=== PATIENT | male | born 1950 | race African-American/Black ===

== ENCOUNTER 2017-02-17 06:03 | Day surgery (SDC) | payer MEDICARE, MEDICAID ==
[2017-02-16 16:17] VITALS: BMI 25.0
[2017-02-17 06:43] LABS: #Basophils 0.1 thou/uL (0.0-0.2); #Eosinphils 0.1 thou/uL (0.0-0.7); #Lymphocytes 2.4 thou/uL (1.20-3.40); #Monocytes 0.9 thou/uL (0.11-0.59); #Neutrophils 5.8 thou/uL (1.40-6.50); %Basophils 0.9 % (0.0-1.0); %Eosinophils 1.6 % (0.0-10.0); %Lymphocytes 25.7 % (21.0-51.0); %Monocytes 9.4 % (0.0-10.0); Hematocrit 43.4 % (42.0-52.0); Mean Platelet Volume 7.6 fL (7.4-10.4); Red Blood Cell (RBC) Count 5.14 mill/uL (4.70-6.10); White Blood Cell (WBC) Count 9.2 thou/uL (4.8-10.8)
[2017-02-17 06:48] LABS: PTT 28.4 SEC (22.9-36.1); Prothrombin Time 13.6 SEC (12.0-14.7)
[2017-02-17] MEDS ORDERED: Diazepam 5 MG TAB ONE (06:54)
[2017-02-17 07:04] LABS: ALT (SGPT) 13 U/L (8-55); AST (SGOT) 18 U/L (5-34); Alkaline Phosphatase 90 U/L (40-150); Anion Gap 12 mmol/L (10-20); BUN (Urea Nitrogen) 15 mg/dL (8.4-25.7); Bilirubin, Total 0.5 mg/dL (0.2-1.2); Calc. Creatinine Clearance 77 mL/min (70-130); Carbon Dioxide 25 mmol/L (23-31); Chloride 104 mmol/L (98-107); Estimated GFR-MDRD 79; Globulin 3.5 g/dL (2.4-3.5); Protein, Total 7.7 g/dL (5.8-8.1)
[2017-02-17] MEDS ORDERED: Sodium Chloride 0.9% 1,000 ML IV SCH (07:15)
[2017-02-17] MEDS ORDERED: Diazepam 5 MG TAB PO SCH (07:15)
[2017-02-17] MEDS ORDERED: Nitroglycerin 100MG/250ML BOT 250 ML ONE (07:43)
--- NOTE | 2017-02-17 10:01 | EKG ---
Test Reason : PREOP Blood Pressure : / mmHG Vent. Rate : 062 BPM Atrial Rate : 062 BPM P-R Int : 220 ms QRS Dur : 096 ms QT Int : 376 ms P-R-T Axes : 064 -31 -28 degrees QTc Int : 381 ms Sinus rhythm with 1st degree A-V block Left axis deviation Voltage criteria for left ventricular hypertrophy Anteroseptal infarct (cited on or before 13-JUL-2011) T wave abnormality, consider lateral ischemia Abnormal ECG When compared with ECG of 09-NOV-2015 22:52, T wave inversion now evident in Anterior leads QT has shortened Confirmed by DESTINEE WILLSON ([id number]) on 02/17/2017 10:01:26 AM Referred By: MILA Confirmed By:DESTINEE WILLSON
[2017-02-17] MEDS ORDERED: Iopamidol 370 76% 100 ML VIAL ONE (17:16)
== END 2017-02-17 13:15 | disposition home or self-care (01) ==
LOC: CCL 06:03
PROVIDERS: ATTEND Internal Medicine Cardiovascular Disease
DX: R07.9 Chest pain, unspecified (principal); Q24.5 Malformation of coronary vessels; I73.9 Peripheral vascular disease, unspecified; I10 Essential (primary) hypertension; E78.5 Hyperlipidemia, unspecified; E11.9 Type 2 diabetes mellitus without complications; Z88.0 Allergy status to penicillin; Z79.84 Long term (current) use of oral hypoglycemic drugs; Z79.82 Long term (current) use of aspirin; Z79.899 Other long term (current) drug therapy
CPT/HCPCS: 76942; 80053; 80061; 85025; 85610; 85730; 93005; 93458; 93798; C1769; 36415; 93010; J1644

== ENCOUNTER 2017-05-04 10:34 | Outpatient (CLI) | payer MEDICARE, MEDICAID ==
[2017-05-04 12:02] LABS: Hematocrit 39.9 % (42.0-52.0); Mean Platelet Volume 7.7 fL (7.4-10.4); Red Blood Cell (RBC) Count 4.61 mill/uL (4.70-6.10); White Blood Cell (WBC) Count 5.6 thou/uL (4.8-10.8)
[2017-05-04 12:20] LABS: PTT 30.7 SEC (22.9-36.1); Prothrombin Time 13.9 SEC (12.0-14.7)
[2017-05-04 12:44] LABS: ALT (SGPT) 12 U/L (8-55); AST (SGOT) 14 U/L (5-34); Alkaline Phosphatase 81 U/L (40-150); Anion Gap 9 mmol/L (10-20); BUN (Urea Nitrogen) 15 mg/dL (8.4-25.7); Bilirubin, Total 0.7 mg/dL (0.2-1.2); Calc. Creatinine Clearance 0 mL/min (70-130); Calcium 9.7 mg/dL (7.8-10.44); Carbon Dioxide 30 mmol/L (23-31); Chloride 104 mmol/L (98-107); Estimated GFR-MDRD 86; Globulin 2.9 g/dL (2.4-3.5)
== END 2017-05-04 10:35 | disposition home or self-care (01) ==
LOC: LABBT 10:34
PROVIDERS: ATTEND Internal Medicine Cardiovascular Disease
DX: Z01.818 Encounter for other preprocedural examination (principal); I20.9 Angina pectoris, unspecified
CPT/HCPCS: 80053; 85027; 85610; 85730; 93005; 93010

== ENCOUNTER 2017-05-06 05:57 | Day surgery (SDC) | payer MEDICARE, MEDICAID ==
[2017-05-04 11:00] VITALS: BMI 25.6
[2017-05-06] MEDS ORDERED: Diazepam 5 MG TAB ONE (06:14)
[2017-05-06] MEDS ORDERED: Diazepam 5 MG TAB PO SCH (06:30)
[2017-05-06] MEDS ORDERED: HOLD HYPOGLYCEMIC MEDS AM OF CATH FS SCH (06:30)
[2017-05-06] MEDS ORDERED: Heparin 1000 UNIT/NS 500ML(OR) 1,000 ML ONE (06:36)
[2017-05-06] MEDS ORDERED: Fentanyl 100 MCG/2 ML VIAL ONE (07:39)
[2017-05-06] MEDS ORDERED: Midazolam HCl 2 mg/2 ml Vial ONE (07:39)
--- NOTE | 2017-05-06 07:50 | PRG ---
DATE OF SERVICE: 05/06/2017 SUBJECTIVE: I spoke with Mr. Hoyos prior to the procedure this morning. This was prior to any sed ation. I discussed drug-coated versus nondrug coated stent placement. After discussing the risks and benefits of drug-coated versus nondrug coated stent placement, he woul d like to proceed with a drug-coated stent. He states he can take Plavix and aspirin for up to a yea r if needed. He states he is compliant with no bleeding issues or surgeries planned. His friend was present during the discussion. After reviewing the films, there appears to be an 80%-90% lesion followed by a 50% lesion. We will t ry and only address the 80%-90% lesion given the proximity to a myocardial bridge. Again, initially had recommended bypass surgery, but the patient after thinking about his options, has deferred, and maicol amanda would like to proceed with intervention to the LAD.
[2017-05-06] MEDS ORDERED: Clopidogrel Bisulfate 300 MG TAB ONE (08:19)
[2017-05-06] MEDS ORDERED: Heparin 10,000 UNITS/1 ML VIAL ONE (08:19)
== END 2017-05-06 14:16 | disposition home or self-care (01) ==
LOC: CCL 05:57
PROVIDERS: ATTEND Internal Medicine Cardiovascular Disease
DX: I25.119 Atherosclerotic heart disease of native coronary artery with unspecified angina pectoris (principal); I10 Essential (primary) hypertension; E11.9 Type 2 diabetes mellitus without complications; E78.5 Hyperlipidemia, unspecified; Z88.0 Allergy status to penicillin; Z79.84 Long term (current) use of oral hypoglycemic drugs; Z79.899 Other long term (current) drug therapy
CPT/HCPCS: 76942; 80061; 85347; 92978; 93005; 93454; 93798; C1725; C1753 ×2; C1760; C1769 ×2; C1874; C9600; 92928; 93010; 99152; 99153; J1644; J2250; J3010

== ENCOUNTER 2017-08-24 19:04 | Emergency (ER) | payer MEDICARE, MEDICAID ==
[2017-08-24] MEDS ORDERED: Ketorolac Tromethamine 30 MG/ML VIAL ONE (20:21)
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
== END 2017-08-24 21:10 | disposition home or self-care (01) ==
LOC: ERS 19:04
DX: S46.912A Strain of unspecified muscle, fascia and tendon at shoulder and upper arm level, left arm, initial encounter (principal); E11.9 Type 2 diabetes mellitus without complications; E78.5 Hyperlipidemia, unspecified; I10 Essential (primary) hypertension; V49.40XA Driver injured in collision with unspecified motor vehicles in traffic accident, initial encounter
CPT/HCPCS: 96372; J1885

== ENCOUNTER 2017-10-13 18:48 | Observation (INO) | payer MEDICARE, MEDICAID ==
[~2017-10-13 18:48] MED LIST: ISOVUE-370 76%-LOCM 1 ML ONE
[2017-10-13 22:40] LABS: #Basophils 0.1 thou/uL (0.0-0.2); #Eosinphils 0.1 thou/uL (0.0-0.7); #Monocytes 0.7 thou/uL (0.11-0.59); #Neutrophils 4.7 thou/uL (1.40-6.50); %Basophils 0.7 % (0.0-1.0); %Eosinophils 1.5 % (0.0-10.0); %Lymphocytes 26.6 % (21.0-51.0); %Monocytes 9.5 % (0.0-10.0); %Neutrophils 61.6 % (42.0-75.0); Hemoglobin 14.3 g/dL (14.0-18.0); Mean Corpuscular HGB CONC 34.4 g/dL (32.0-36.0); Mean Corpuscular Hemoglobin 29.4 pg (27.0-31.0); Mean Corpuscular Volume 85.3 fl (80.0-94.0); Mean Platelet Volume 7.2 fL (7.4-10.4); Platelet Count 199 thou/uL (130-400); RBC Distribution Width 12.7 % (11.5-14.5); Red Blood Cell (RBC) Count 4.86 mill/uL (4.70-6.10); White Blood Cell (WBC) Count 7.6 thou/uL (4.8-10.8)
[2017-10-13] MEDS ORDERED: Morphine 10 MG/ML VIAL ONE (22:48)
[2017-10-13 22:52] LABS: Bilirubin Negative (Negative); Blood, Urine Negative (Negative); Clarity CLOUDY (Clear); Glucose, Urine (Dipstick) Negative (Negative); Leukocyte Negative (Negative); Nitrite Negative (Negative); Protein, Urine (Dipstick) Negative (Neg-Trace); Specific Gravity, Urine 1.006 (1.002-1.036); Urobilinogen 0.2 mg/dL (0.2-1.0); pH, Urine 7.5 (5.0-9.0)
[2017-10-13 23:08] LABS: ALT (SGPT) 11 U/L (8-55); AST (SGOT) 22 U/L (5-34); Albumin 4.4 g/dL (3.4-4.8); Alkaline Phosphatase 81 U/L (40-150); Anion Gap 13 mmol/L (10-20); BUN (Urea Nitrogen) 9 mg/dL (8.4-25.7); Calc. Creatinine Clearance 0 mL/min (70-130); Calcium 9.8 mg/dL (7.8-10.44); Carbon Dioxide 24 mmol/L (23-31); Chloride 105 mmol/L (98-107); Estimated GFR-MDRD Greater than 90; Globulin 3.3 g/dL (2.4-3.5); Glucose 126 mg/dL (80-115); Potassium 3.5 mmol/L (3.5-5.1); Protein, Total 7.7 g/dL (5.8-8.1); Sodium 138 mmol/L (136-145)
[2017-10-13 23:09] LABS: CRP (Inflammatory) Less than 0.50 mg/dL (= or < 0.5); Lipase 19 U/L (8-78)
--- NOTE | 2017-10-13 23:39 | CT ---
CT ABDOMEN AND PELVIS WITH IV CONTRAST: 10/13/2017 PROVIDED CLINICAL HISTORY: Abdominal pain. COMPARISON: None. FINDINGS: The visualized lung bases are free of significant opacity. The solid abdominal organs demonstrate an unremarkable CT appearance. Hqv-gniri-yq-characterize hypo density involving the left kidney. There is a right inguinal hernia, containing small bowel. There is a resultant small bowel obstructi on. There is no evidence for pneumatosis or portal venous gas. There is no evidence for pneumoperit oneum. There is fluid density within the hernia sac. There is no inflammatory fat stranding or free fluid apparent. A small fat-containing umbilical jack ia is also seen. The osseous structures demonstrate no concerning osteoblastic or osteolytic lesions. IMPRESSION: Small bowel containing right inguinal hernia with resultant small bowel obstruction. POS: [facility]
[2017-10-14 01:49] VITALS: BMI 23.4
[2017-10-14] MEDS: Sodium Chloride 0.9% 1,000 ML IV SCH ×2 (02:10→15:16)
[2017-10-14] MEDS ORDERED: Morphine 4 MG/ML VIAL SLOW IVP PRN (02:38)
[2017-10-14] MEDS ORDERED: Ondansetron ODT 4 MG TAB SL PRN (02:39)
[2017-10-14] MEDS ORDERED: Ondansetron HCl/PF 4 MG/2 ML Vial IVP PRN (02:39)
[2017-10-14] MEDS: Morphine 4 MG/ML VIAL SLOW IVP PRN ×2 (02:45→08:00)
[2017-10-14 08:03] VITALS: TEMP 97.4
[2017-10-14] MEDS ORDERED: Prevnar 13-Val Conj/PF 0.5 ML SYRINGE IM ONE (09:00)
[2017-10-14] MEDS ORDERED: Ketorolac Tromethamine 30 MG/ML VIAL IVP SCH (09:30)
[2017-10-14] MEDS ORDERED: Acetaminophen 1,000 MG in Premix Bag 1 BAG IVPB SCH (09:30)
--- NOTE | 2017-10-14 09:48 | HP ---
HISTORY OF PRESENT ILLNESS: Pauly Hoyos is a 66-year-old black male, admitted last year, had chest pain, underwent evaluation, had a coronary stent placed by Dr. Patton. The patient is a symptomatic from a coronary standpoint. He had normal echocardiogram at that time. He has not follo wed up with Dr. Patton as an outpatient. Patient presents with a history of right inguinal hernia for several months that he is able to reduce. He presented to emergency room and it was not reducib le. He underwent a CAT scan demonstrating right inguinal hernia with small-bowel obstruction. He wa s admitted to the hospital. The patient has not had any nausea or vomiting. His white count was nor mal. This morning, I saw him and reduced his hernia without difficulty at all. Patient's abdomen is not d istended. On exam, standing, he has a right inguinal hernia, but no left inguinal hernia. There is no discomfort in his left groin. CAT scan of abdomen and pelvis, otherwise, was unremarkable. Plan is for a robotic right inguinal hernia repair with mesh, possible hernia repair on the left with mesh if discovered and appreciated laparoscopically, robotically. Risk of infection, bleeding, reoperati on, recurrence of hernia, chronic pain discussed. ALLERGIES: PENICILLIN. TOBACCO: None. ALCOHOL: None. MEDICATIONS: Aspirin 81 mg a day, metformin 1000 b.i.d., furosemide 20 mg daily, glipizide 5 mg b.i. d., lisinopril 40 mg daily, isosorbide 30 mg daily, Plavix 75 mg daily, carvedilol 25 mg b.i.d., ator vastatin 40 mg at bedtime. PAST SURGICAL HISTORY: Coronary stent last year, Dr. Patton. PAST MEDICAL HISTORY: Hypertension, type 2 diabetes mellitus, stable coronary artery disease, schizo phrenia. PHYSICAL EXAMINATION: VITAL SIGNS: 6 feet tall, 173 pounds, 23 BMI, 97.4, 54, 16. HEAD, EARS, EYES, NOSE, AND THROAT: Unremarkable. LUNGS: Clear to auscultation. CARDIAC: Regular rate and rhythm without murmur, rub, or gallop. ABDOMEN: Soft, nontender, nondistended. Right inguinal hernia, easily reducible. On standing, he h as a right inguinal hernia. Testicles are normal bilaterally. Left groin without appreciable hernia . EXTREMITIES: Unremarkable. LABORATORY DATA: White count 7.6, hemoglobin 14. Comprehensive metabolic profile normal. ASSESSMENT AND PLAN: 1. Right inguinal hernia, easily reducible. We will plan robotic hernia repair, possible left ingui nal hernia repair is appreciated robotically. Risk of infection, bleeding, reoperation explained, an d he consents. 2. Schizophrenia. 3. Coronary artery disease. 4. Hypertension. 5. Diabetes mellitus.
[2017-10-14] MEDS ORDERED: Fentanyl 100 MCG/2 ML VIAL ONE ×2 (10:12→13:04)
[2017-10-14] MEDS ORDERED: Bupivacaine/Epinephrine 0.25% 30 ML VIAL ONE (10:16)
[2017-10-14] MEDS ORDERED: Succinylcholine Chloride 20 MG/ML 10 ml SYRINGE FS ONE (12:43)
[2017-10-14] MEDS ORDERED: PHENYLEPHRINE-NS 100 MCG/ML 10 ML SYRINGE ONE (12:43)
[2017-10-14] MEDS ORDERED: Lidocaine 1% PF 5 ML VIAL ONE (12:43)
[2017-10-14] MEDS ORDERED: Dexamethasone 20 MG/5 ML VIAL ONE (12:43)
[2017-10-14] MEDS ORDERED: Ondansetron HCl/PF 4 MG/2 ML Vial ONE (12:43)
[2017-10-14] MEDS ORDERED: Glycopyrrolate 0.2 MG/ML 5 ML SYRINGE ONE (12:43)
[2017-10-14] MEDS ORDERED: PROPOFOL 200 MG/20 ML VIAL ONE (12:43)
[2017-10-14] MEDS ORDERED: traMADol HCl 50 MG TAB PO PRN ×2 (13:48)
[2017-10-14] MEDS ORDERED: Ibuprofen 600 MG TAB PO PRN (13:48)
[2017-10-14] MEDS ORDERED: Acetaminophen 500 MG TAB PO PRN (13:48)
[2017-10-14] MEDS ORDERED: HumaLOG 300 UNITS/3 ML VIAL SC PRN (13:51)
[2017-10-14] MEDS ORDERED: Dextrose 5% in Water 1,000 ML IV PRN (13:51)
[2017-10-14] MEDS ORDERED: Dextrose 50% Abboject 50 ML SYRINGE SLOW IVP PRN (13:51)
[2017-10-14] MEDS ORDERED: HYDROmorphone 2 MG/ML VIAL SLOW IVP PRN (14:08)
[2017-10-14] MEDS ORDERED: Promethazine HCl 25 MG/ML VIAL SLOW IVP PRN (14:08)
[2017-10-14] MEDS ORDERED: Morphine Sulfate 2 MG/ML SYRINGE SLOW IVP PRN (14:08)
[2017-10-14] MEDS ORDERED: Meperidine HCl/PF 25 MG/ML VIAL SLOW IVP PRN (14:08)
[2017-10-14] MEDS ORDERED: Lisinopril 20 MG TAB PO SCH (16:30)
[2017-10-14 16:36] VITALS: BP 171/60
[2017-10-14] MEDS ORDERED: Clopidogrel Bisulfate 75 MG TAB PO SCH (17:00)
--- NOTE | 2017-10-14 19:48 | OP ---
DATE OF PROCEDURE: 10/14/2017 PREOPERATIVE DIAGNOSES: Incarcerated right inguinal hernia with bowel obstruction, reduced preoperat ively earlier this morning. POSTOPERATIVE DIAGNOSES: Incarcerated right inguinal hernia with bowel obstruction reduced preoperat ively earlier this morning. PROCEDURE PERFORMED: Robotic endoscopic mesh repair, indirect right inguinal hernia. SURGEON: Dr. Thaddeus Heredia SAS ARCHITECT: Dr. Hudson. ANESTHESIA: General anesthesia. Local 0.5% Marcaine with epinephrine, 30 mL total volume used. PROCEDURE IN DETAIL: The patient was taken to the operating room where under general anesthesia, Fol ey catheter was placed at the beginning of the procedure, removed at the end. Abdomen clipped of corey r, prepared with ChloraPrep, draped in routine fashion. Local anesthetic infiltrated into skin and s ubcutaneous tissue about the port sites. Supraumbilical incision made. Pneumoperitoneum to 15 mmHg obtained with the Veress needle, replacing it with an 11-port and video laparoscope inserted. Left l ateral and right lateral incisions made and 8-mm ports placed on the horizontal plane. These were pl aced under laparoscopic visualization. The robot was docked, properly positioned with the patient pr operly padded in supine position and robotic inguinal hernia repair undertaken. The left groin revea led a very small indentation, but his preoperative clinical exam did not reveal a hernia on standing exam and he was asymptomatic. This was felt not to be worth repairing. There was a large indirect r ight inguinal hernia. Peritoneum was scored horizontally at the level of the anterior superior iliac spine. Peritoneum was scored from laterally to medially to the midline. Peritoneal flaps dissected free medially, the Kevin's ligament identified in the pubis. It was then dissected medially toward s the cord structures laterally, dissection carried out. This was taken down and then the large [place] rect hernia sac dissected free. Hernia sac was very large, dissection difficult. It was dissected f ree, reduced. The cord structures kept free of harm. The inferior epigastric arteries kept free of harm. At this point, Bard 3DMax mesh for the right side was placed in the medial and near the pubis, secured to the pubis with 2-0 Vicryl suture. Mesh was properly positioned well covering the right g roin and cord structures and secured anterior and right lateral just to the inferior epigastric arter ies. Once it was properly positioned, the peritoneum was closed with continuous suture of Stratafix. Good hernia repairs appreciated. Patient tolerated the procedure well. Chandler removed. All instru ments removed and all skin incisions in the supraumbilical fascia approximated with 0 Vicryl GraNee n eedle and all pneumoperitoneum reduced. All skin incisions closed with interrupted subdermal 4-0 Mon ocryl and DermaGlue applied.
[2017-10-14] MEDS ORDERED: Atorvastatin Calcium 40 MG TAB PO SCH (21:00)
[2017-10-14] MEDS ORDERED: Carvedilol 25 MG TAB PO SCH (21:00)
[2017-10-14] MEDS ORDERED: metFORMIN 500 MG TAB PO SCH (21:00)
--- NOTE | 2017-10-14 22:01 | DIS ---
DATE OF ADMISSION: 10/13/2017 DATE OF DISCHARGE: 10/14/2017 DISCHARGE DIAGNOSES: 1. Incarcerated inguinal hernia with bowel obstruction. 2. Schizophrenia. 3. Diabetes. 4. Hypertension. PROCEDURES IN THIS HOSPITALIZATION: Robotic mesh repair, right inguinal hernia. HISTORY: A 66-year-old black male with a history of a hernia in his right groin for several months. He is asymptomatic on the left side and clinical exam did not reveal a hernia prior to the operation . Patient was seen in the emergency room. CAT scan confirmed a right inguinal hernia that was incar cerated. He was put in the hospital overnight and I saw him early in the morning easily reduced his hernia, resolving any discomfort. He was then taken to the operating room late morning or afternoon when he underwent the above procedure and postoperatively did well and discharged home to resume his home medications, avoid lifting over 25 pounds for 2 weeks. Diet and activity otherwise as tolerated . Resume his diabetic diet, resume his home medications including aspirin 81 mg a day, metformin 100 0 b.i.d., furosemide 20 daily, glipizide 5 mg b.i.d., lisinopril 40 mg a day, isosorbide 30 mg a day, Plavix 75 mg a day, Coreg 25 mg b.i.d., atorvastatin 40 mg at bedtime, tramadol 50 mg p.o. q.6 hours p.r.n., ibuprofen 600 mg p.r.n. pain, acetaminophen p.r.n. Patient is to follow up in my office in 2 weeks, avoid lifting over 25 pounds for 2 weeks. He does have coronary artery disease, had a coron jacob stent placed last year by Dr. Patton. He was asymptomatic from a cardiac standpoint. He was encouraged to follow up Dr. Patton.
[2017-10-15] MEDS ORDERED: Non-Formulary Item 1 EACH (Lisinopril [Lisinopril] 40 MG) PO SCH (09:00)
[2017-10-15] MEDS ORDERED: Furosemide 20 MG TAB PO SCH (09:00)
[2017-10-15] MEDS ORDERED: Polyethylene Glycol 3350 17 GM Packet PO SCH (09:00)
[2017-10-15] MEDS ORDERED: Lisinopril 20 MG TAB PO SCH (09:00)
[2017-10-15] MEDS ORDERED: Clopidogrel Bisulfate 75 MG TAB PO SCH (09:00)
== END 2017-10-14 18:13 | disposition home or self-care (01) ==
LOC: ERS 18:48 → 2SW 10-14 00:58
PROVIDERS: ADMIT Specialist; ATTEND Specialist
PROC: 0YU54JZ Supplement Right Inguinal Region with Synthetic Substitute, Percutaneous Endoscopic Approach (ICD-10-PCS; principal; 2017-10-13)
DX: K40.90 Unilateral inguinal hernia, without obstruction or gangrene, not specified as recurrent (principal); I25.10 Atherosclerotic heart disease of native coronary artery without angina pectoris; I10 Essential (primary) hypertension; E11.9 Type 2 diabetes mellitus without complications; F20.9 Schizophrenia, unspecified; Z79.02 Long term (current) use of antithrombotics/antiplatelets; Z79.82 Long term (current) use of aspirin; Z79.84 Long term (current) use of oral hypoglycemic drugs; Z79.899 Other long term (current) drug therapy; Z88.0 Allergy status to penicillin; Z95.5 Presence of coronary angioplasty implant and graft
CPT/HCPCS: 49650; 74177; 80053; 81003; 82962; 83605; 83690; 85025; 86140; 93005; 96361; 96374; 96375; 96376; 99285; C1781; G0378; 36415; 36416; J0131; J1100; J1885; J1956; J2001; J2270; J2405; J2704; J3010; Q0162

== ENCOUNTER 2017-12-28 14:57 | Outpatient (CLI) | payer MEDICARE, MEDICAID ==
[~2017-12-28 14:57] MED LIST changes: -ISOVUE-370 76%-LOCM 1 ML ONE; +Iopamidol 370 76% 100 ML VIAL ONE
== END 2017-12-28 14:58 | disposition home or self-care (01) ==
LOC: BICCT 14:57
PROVIDERS: ATTEND Internal Medicine Gastroenterology
DX: R63.4 Abnormal weight loss (principal)
CPT/HCPCS: 74177; 82565

== ENCOUNTER 2018-07-23 12:44 | Outpatient (CLI) | payer MEDICARE, MEDICAID ==
--- NOTE | 2018-07-23 15:02 | RAD ---
PORTABLE CHEST: HISTORY: MRI screening. FINDINGS: The lungs are clear. The heart and mediastinum are unremarkable. No pacemaker or other electronic d evice is identified. IMPRESSION: Negative chest. POS: [facility]
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
== END 2018-07-23 12:45 | disposition home or self-care (01) ==
LOC: BICMRI 12:44
PROVIDERS: ATTEND Orthopaedic Surgery
DX: M47.22 Other spondylosis with radiculopathy, cervical region (principal); M48.02 Spinal stenosis, cervical region; M48.03 Spinal stenosis, cervicothoracic region
CPT/HCPCS: 71045; 72141

== ENCOUNTER 2020-02-09 12:28 | Inpatient (IN) | payer MEDICARE, MEDICAID, OTHER ==
[~2020-02-09 12:28] MED LIST changes: -Iopamidol 370 76% 100 ML VIAL ONE; +Iopamidol-370 76% 500 ML 1 ML ONE
--- NOTE | 2020-02-09 12:40 | CT ---
EXAM: CT brain without contrast HISTORY: Left-sided weakness and ectasia. Level 1 stroke. COMPARISON: 11/10/2015 TECHNIQUE: Multiple contiguous axial images were obtained and a CT of the brain without contrast. FINDINGS: There are scattered hypodensities in the subcortical and periventricular white matter consi stent with small vessel ischemic disease. There is no evidence of hydrocephalus, intracranial hemorrhage, or extra-axial fluid collection. The calvarium and overlying soft tissues are unremarkable. The visualized paranasal sinuses and masto id air cells are well aerated. IMPRESSION: No evidence of acute intracranial abnormality Dr. monson notified of findings at 12:37 PM on 02/09/2020.
[2020-02-09] MEDS ORDERED: niCARdipine 20MG In NaCl 20 MG/200 ML BAG ONE (13:19)
[2020-02-09 13:23] LABS: #Eosinphils 0.1 thou/uL (0.0-0.7); #Lymphocytes 1.2 thou/uL (1.20-3.40); #Monocytes 0.5 thou/uL (0.11-0.59); #Neutrophils 5.1 thou/uL (1.40-6.50); %Basophils 0.7 % (0.0-1.0); %Eosinophils 0.7 % (0.0-10.0); %Lymphocytes 17.4 % (21.0-51.0); %Monocytes 7.7 % (0.0-10.0); %Neutrophils 73.5 % (42.0-75.0); Hemoglobin 14.2 g/dL (14.0-18.0); Mean Corpuscular HGB CONC 32.5 g/dL (32.0-36.0); Mean Corpuscular Hemoglobin 27.9 pg (27.0-31.0); Mean Corpuscular Volume 85.8 fL (78.0-98.0); Mean Platelet Volume 8.8 fL (7.4-10.4); Platelet Count 176 thou/uL (130-400); Red Blood Cell (RBC) Count 5.11 mill/uL (4.70-6.10); White Blood Cell (WBC) Count 6.9 thou/uL (4.8-10.8)
[2020-02-09 13:28] LABS: PTT 30.6 sec (22.9-36.1); Prothrombin Time 13.2 sec (12.0-14.7)
[2020-02-09 13:37] LABS: ALT (SGPT) 11 U/L (8-55); AST (SGOT) 16 U/L (5-34); Albumin 4.1 g/dL (3.4-4.8); Alkaline Phosphatase 92 U/L (40-110); Anion Gap 10 mmol/L (10-20); BUN (Urea Nitrogen) 12 mg/dL (8.4-25.7); Bilirubin, Total 0.5 mg/dL (0.2-1.2); CK (CPK) 147 U/L (30-200); Calc. Creatinine Clearance 0 mL/min (70-130); Calcium 9.3 mg/dL (7.8-10.44); Carbon Dioxide 30 mmol/L (23-31); Chloride 101 mmol/L (98-107); Estimated GFR-MDRD 68; Globulin 3.6 g/dL (2.4-3.5); Glucose 145 mg/dL (80-115); Potassium 4.3 mmol/L (3.5-5.1); Protein, Total 7.7 g/dL (5.8-8.1); Sodium 137 mmol/L (136-145)
--- NOTE | 2020-02-09 13:41 | CT ---
EXAM: CT ANGIOGRAM OF THE HEAD AND NECK INDICATION: Stroke COMPARISON: None TECHNIQUE: CT angiogram of the head and neck are performed in the axial plane. Three-dimensional refo rmatted images are submitted for interpretation. FINDINGS: CTA OF THE HEAD WITH AND WITHOUT CONTRAST: POSTCONTRAST CT OF BRAIN: Pathologic enhancement: No pathologic enhancement the brain. Loss of cortical angulo-white matter diffe rentiation involving the right frontal temporal region compatible with a infarct involving a branch of the right MCA distribution. Postcontrast soft tissue neck CT: Aerodigestive tract:Aerodigestive tract is patent. No mucosal abnormality. Sinuses: Adequate aeration. Orbits: Bilateral ocular lenses are appropriately located. Both globes are intact. Retrobulbar fat is preserved. Symmetric attenuation the optic nerves and ocular rectus muscles. Salivary glands:Symmetric attenuation Thyroid gland: Unremarkable Lymph nodes: No evidence of lymphadenopathy by size criteria. Paraspinal muscles: Symmetric attenuation of the sternocleidomastoid muscles. Appropriate attenuation of the paraspinal muscles. Cervical spine:Vertebral body height is maintained. No fracture. Moderate central canal stenosis at C 4-C5, C5-C6 and C6-C7 due to degenerative change. Associated neural foraminal narrowing. Technique limits evaluation. Upper mediastinum and lung apices: No acute mild CTA OF THE NECK WITH CONTRAST: Aorta: Atherosclerosis. No aneurysm, dissection or periaortic fat stranding Right carotid artery: Appropriate enhancement and luminal diameter the origin the right carotid arter y, innominate artery, carotid bifurcation and internal carotid artery. No significant stenosis based upon NASCET criteria Left carotid: Appropriate enhancement and luminal diameter involving the origin left carotid artery, common carotid, carotid bifurcation and internal carotid artery. No significant stenosis based upon NASCET criteria. Subclavian arteries:Symmetric and patent Vertebral arteries:Patent throughout their course in the neck. Dominant left vertebral artery. CTA OF THE BRAIN: Intracranial internal carotid arteries:Appropriate enhancement and luminal diameter Anterior circulation: Symmetric enhancement and luminal diameter the A1 segments, proximal A2 segment s, M1 segments and proximal MCA branches. There does appear to be recanalize along the right frontal lobe (axial images 229 to 233 and axial images 244 to 250.. Stenosis is presumed to involve a second or possibly third-degree branch vessel along the right MCA distribution.. Left M1 segment and left MCA branches are patent. Intracranial vertebral arteries: Patent. Both vertebral arteries supply normal caliber basilar artery . Posterior circulation: Appropriate enhancement and luminal diameter of the basilar artery and bilater al P1 segments. IMPRESSION: Acute infarct involving the right MCA distribution. Exact origin of occlusion is difficult to appreci ate but is presumed to be a second or third degree branch vessels supplying the anterior right MCA distribution. Results of study conveyed to Dr. Brar 02/09/2020 at 1:39 PM Code CR Transcribed Date/Time: 02/09/2020 1:55 PM
[2020-02-09] MEDS ORDERED: Aspirin Chewable 81 MG TAB ONE (14:03)
[2020-02-09] MEDS ORDERED: Aspirin 300 MG Suppository ONE (15:25)
--- NOTE | 2020-02-09 15:42 | PDOC.HHP ---
Hospitalist HPI - History of Present Illness stroke like symptoms History of Present Illness: This is 69 year old male with past medical history of hypertension, diabetes, possible bipolar versus schizophrenia, enlarged heart who was presented after he was found down on the floor. The patient is unable to give a history. THe patient's daughter states that her father called her around 8:00 pm last night and the patient was not speaking to her. She thought he was playing a prank so she did not think much of it. THis morning her aunt found him on the ground difficult to arouse. THe patient states he had no headache, weakness, numbness in his arms or legs, difficulty speaking, chest pain, palpitations, dysphagia, lightheadedness or dizziness prior to passing out. The ambulance was called. They noticed dysarthria and left sided weakness. There was a question of him being normal possibly around 11:00 am today but unclear The patient reportedly has had a seizure before two years ago and was supposed to be taking a medicine for it but she is not sure. ED Course: WHen the patient arrived to the ER, his blood pressure was 210/120. CT head showed no acute disease. CTA showed acute infarct in the right MCA distribution. The patient was started on a nicardipine drip. Blood pressure came down to 160 with this. Hospitalist ROS - Review of Systems Constitutional: denies: fever, chills Eyes: denies: pain, vision change ENT: denies: ear pain, ear discharge Respiratory: denies: cough, dry, shortness of breath Cardiovascular: denies: chest pain, palpitations, orthopnea, light headedness Gastrointestinal: denies: nausea, vomiting, abdominal pain Genitourinary: denies: dysuria, frequency Musculoskeletal: denies: neck pain, shoulder pain Skin: denies: rash, lesions Neurological: denies: weakness, numbness Hospitalist History - Past Medical History Other Medical History: Hypertension Diabetes Bipolar/Schizophrenia versus Schizoaffective Enlarged heart - Past Surgical History Past Surgical History: reports: no pertinent history - Family History Other Family History: Unknown family history of stroke - Social History Smoking Status: Never smoker Alcohol: reports: None Drugs: reports: none Occupation: Retired - Exam General Appearance: NAD, awake alert Eye: PERRL, anicteric sclera ENT: normocephalic atraumatic, no oropharyngeal lesions Neck: no JVD Heart: RRR, no murmur, no gallops, no rubs Respiratory: CTAB, no wheezes, no rales, no ronchi Gastrointestinal: soft, non-tender, non-distended, normal bowel sounds Extremities: no cyanosis, no clubbing, no edema Skin: normal turgor, no lesions, no rashes Neurological: cranial nerve grossly intact, normal sensation to touch, no focal deficits, no new deficit, facial droop (left facial droop with weakness) Neurological - other findings: LLE 4/5 strength compared to right. Brisk reflexes. Neg Babinski Musculoskeletal: normal tone, normal strength, no muscle wasting Musculoskeletal - other findings: full range of motion of extremities Psychiatric: A&O x 3, flat affect Hospitalist Results - Labs Result Diagrams: 02/09/20 13:00 02/09/20 13:00 Lab results: WBC 6.9 thou/uL (4.8-10.8) 02/09/20 13:00 Hgb 14.2 g/dL (14.0-18.0) 02/09/20 13:00 Hct 43.9 % (42.0-52.0) 02/09/20 13:00 MCV 85.8 fL (78.0-98.0) 02/09/20 13:00 Plt Count 176 thou/uL (130-400) 02/09/20 13:00 Neutrophils % 73.5 % (42.0-75.0) 02/09/20 13:00 Sodium 137 mmol/L (136-145) 02/09/20 13:00 Potassium 4.3 mmol/L (3.5-5.1) 02/09/20 13:00 Chloride 101 mmol/L (98-107) 02/09/20 13:00 Carbon Dioxide 30 mmol/L (23-31) 02/09/20 13:00 BUN 12 mg/dL (8.4-25.7) 02/09/20 13:00 Creatinine 1.27 mg/dL (0.7-1.3) 02/09/20 13:00 Glucose 145 mg/dL (80-115) H 02/09/20 13:00 Calcium 9.3 mg/dL (7.8-10.44) 02/09/20 13:00 Total Bilirubin 0.5 mg/dL (0.2-1.2) 02/09/20 13:00 AST 16 U/L (5-34) 02/09/20 13:00 ALT 11 U/L (8-55) 02/09/20 13:00 Alkaline Phosphatase 92 U/L (40-110) 02/09/20 13:00 Creatine Kinase 147 U/L (30-200) 02/09/20 13:00 CK-MB (CK-2) 2.0 ng/mL (0-6.6) 02/09/20 13:00 Troponin I 0.031 ng/mL (< 0.028) H 02/09/20 13:00 Serum Total Protein 7.7 g/dL (5.8-8.1) 02/09/20 13:00 Albumin 4.1 g/dL (3.4-4.8) 02/09/20 13:00 - EKG Interpretation EKG: normal sinus rhythm Hospitalist H&P A/P - Plan Plan: CTA head: stenosis along second or third degree branch vessel along right MCA CTA neck: no significant stenosis This is a 69 year old male with history of hypertension, diabetes who presented with left sided weakness, found to have right MCA stroke Right MCA stroke - noted on CT head. CTA neck showed no significant stenosis. CTA head shows stenosis along second-third degree branch vessel along right MCA - patient does not appear to be candidate for TPA due to unclear onset of symptoms - will give rectal aspirin -continue statin - check MRI brain - neurology consult - ECHO, lipid panel in am - stroke team consult - BP goal around 180, will attempt to wean off nicardipin drip Type II Diabetes - insulin sliding scale - fingersticks achs Elevated troponin - at 0.031, continue to trend - check ECHO Hypertension - hold home meds, permissive hypertension for now CAD - had stent placement in LAD in 2017 - continue aspirin/plavix Schizophrenia vs Bipolar - not on any psychiatric meds. 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
--- NOTE | 2020-02-09 16:07 | PDOC.FMACP ---
Advance Care Planning - Note Participants: patient Summary: Advanced Care Planning was discussed. The diagnosis, prognosis and goals of care were discussed. Appropriate forms and documentation to accomplish the goals of care were discussed. All questions were answered. The Palliative Care Team will be engaged to assist with completion of any outstanding forms that are needed. The patient would like to be a full code. He states he would like his daughter Gokul to be his decision maker if he cannot make decisions for himself Time Spent (mins): 30
--- NOTE | 2020-02-09 16:44 | MRI ---
MRI OF THE BRAIN WITHOUT CONTRAST: 02/09/20 INDICATIONS: Left sided weakness. Aphasia. Comparison made to MRI of brain from 09/01/12. Motion artifact degrades the study. Ventricles have normal size and position. Moderately severe chronic ischemic white matter changes are noted which have progressed since prior exam. Review of diffusion weighted images show restricted diffusion in the right frontal lobe cortex. This involves portions of the right precentral gyrus peripherally that extends inferiorly into the parasyl vian region and involves the opercular cortex and the portions of the anterior insular cortex. Findin gs are consistent with an acute right middle cerebral artery distribution infarct. No hemorrhage identified. The intracranial internal carotid arteries show flow voids. Portions of the right middle cerebral art kajal show a flow void proximally but this artery cannot be adequately assessed due to motion artifact. Basilar artery appears patent. IMPRESSION: 1. Acute infarct involving the right middle cerebral artery distribution. 2. Moderate chronic ischemic white matter change. POS: AGW
[2020-02-09 20:23] LABS: Troponin I 0.018 ng/mL (< 0.028)
[2020-02-09] MEDS: Atorvastatin Calcium 40 MG TAB PO SCH (22:46)
[2020-02-09 22:54] VITALS: BMI 25.2
[2020-02-10] MEDS ORDERED: Dextrose 5% in Water 1,000 ML IV PRN (08:21)
[2020-02-10] MEDS ORDERED: HumaLOG 300 UNITS/3 ML VIAL SC PRN (08:21)
[2020-02-10] MEDS ORDERED: Dextrose 50% Abboject 50 ML SYRINGE SLOW IVP PRN (08:21)
[2020-02-10] MEDS ORDERED: hydrALAZINE 20 MG/ML VIAL SLOW IVP PRN (09:43)
[2020-02-10 12:47] LABS: SARS-CoV-2 MS2 Positive; SARS-CoV-2 N Gene Negative; SARS-CoV-2 S Gene Negative; SARS-CoV-2 by NAA Not Detected (NotDetected); SARS-CoV-2 orf1ab Negative
--- NOTE | 2020-02-10 13:07 | EEG ---
DATE OF SERVICE: 02/10/2020 ATTENDING PHYSICIAN: Shanique Fragoso MD This EEG was performed using 24-channel [employer] Video Digital EEG machine with 24-disk electrodes. This was an extended 2 hours 5 minutes of inpatient video EEG recording. Digital analysis of the EEG was done for spike and seizure detection, which revealed no abnormalities. BACKGROUND: The posterior background rhythm is 9 to 10 Hz. The background rhythm attenuates with eye opening and enhances with eye closure. HYPERVENTILATION: Not performed. PHOTIC STIMULATION: Bioccipital symmetric driving responses observed. SLEEP: Drowsiness and sleep are observed. EEG DIAGNOSIS: Occasional irregular theta activity seen during the recording. CLINICAL INTERPRETATION: This EEG is consistent with mild generalized nonspecific cerebral dysfunction. Job ID: [id number]
--- NOTE | 2020-02-10 13:57 | CON ---
NEUROLOGY CONSULTATION DATE OF CONSULTATION: 02/10/2020 REASON FOR CONSULTATION: Stroke. HISTORY OF PRESENT ILLNESS: Mr. Pauyl Hoyos is a 69-year-old male with medical history significant for hypertension, bipolar disorder, and schizophrenia, presented to the hospital after he was found down on the floor. The patient is unable to provide history, so history is obtained from review of the medical records. Per medical records, the patient's daughter saw her father around 8 p.m. last night, and at that time, the patient was not speaking to her. She did not pay much attention at that time and thought it was secondary to his mood issue; however, her aunt called her in the morning and told her that he was on the floor and was difficult to arouse, therefore, ambulance was called and it was decided to bring to the hospital for further evaluation. They also noticed on initial presentation, he had significant dysarthria and left-sided weakness. The patient does have history of seizure disorder two years ago and supposed to be on a medicine, but apparently from review of the records, he is not on any medication. In the emergency room, his blood pressure was 210/120. CT scan did not show any acute intracranial pathology. CTA showed acute infarct in the right middle cerebral artery distribution, and he was started on nicardipine drip and admitted to the stroke floor for further evaluation. - Review of Systems Constitutional: denies: fever, chills Eyes: denies: pain, vision change ENT: denies: ear pain, ear discharge Respiratory: denies: cough, dry, shortness of breath Cardiovascular: denies: chest pain, palpitations, orthopnea, light headedness Gastrointestinal: denies: nausea, vomiting, abdominal pain Genitourinary: denies: dysuria, frequency Musculoskeletal: denies: neck pain, shoulder pain PAST MEDICAL HISTORY: Hypertension, diabetes, bipolar, schizoaffective disorder, and enlarged heart. PAST SURGICAL HISTORY: No significant past surgical history. FAMILY HISTORY: No family history of stroke. SOCIAL HISTORY: The patient lives alone. There is no documented history of smoking, alcohol, or illegal drug use. ALLERGIES: NKDA - Exam General Appearance: NAD, awake alert Eye: PERRL, anicteric sclera ENT: normocephalic atraumatic, no oropharyngeal lesions Neck: no JVD Heart: RRR, no murmur, no gallops, no rubs Respiratory: CTAB, no wheezes, no rales, no ronchi Gastrointestinal: soft, non-tender, non-distended, normal bowel sounds Extremities: no cyanosis, no clubbing, no edema Skin: normal turgor, no lesions, no rashes Neurological:: Mental status, the patient is alert, awake, and is oriented to person, place, and time. Significant dysarthria and receptive aphasia. Cranial nerves 2 through 12 intact except 7, left facial droop and 10, dysarthria. Motor, muscle tone is decreased on the left upper and lower extremity. Left upper extremity is 3/5. Left lower extremity 4/5. Right upper extremity 5/5. Right lower extremity 5/5. Sensation decreased on the left. Cerebellar, slow on the left secondary to weakness. Gait deferred due to the patient's safety reasons. DATA REVIEWED: I reviewed the labs, which were significant for hyperglycemia of 145. Rest of the labs were essentially unremarkable. EKG showed normal sinus rhythm. CTA of the head showed stenosis of branch vessel along the right MCA. CTA neck showed no significant stenosis. Lab results: WBC 6.9 thou/uL (4.8-10.8) 02/09/20 13:00 Hgb 14.2 g/dL (14.0-18.0) 02/09/20 13:00 Hct 43.9 % (42.0-52.0) 02/09/20 13:00 MCV 85.8 fL (78.0-98.0) 02/09/20 13:00 Plt Count 176 thou/uL (130-400) 02/09/20 13:00 Neutrophils % 73.5 % (42.0-75.0) 02/09/20 13:00 Sodium 137 mmol/L (136-145) 02/09/20 13:00 Potassium 4.3 mmol/L (3.5-5.1) 02/09/20 13:00 Chloride 101 mmol/L (98-107) 02/09/20 13:00 Carbon Dioxide 30 mmol/L (23-31) 02/09/20 13:00 BUN 12 mg/dL (8.4-25.7) 02/09/20 13:00 Creatinine 1.27 mg/dL (0.7-1.3) 02/09/20 13:00 Glucose 145 mg/dL (80-115) H 02/09/20 13:00 Calcium 9.3 mg/dL (7.8-10.44) 02/09/20 13:00 Total Bilirubin 0.5 mg/dL (0.2-1.2) 02/09/20 13:00 AST 16 U/L (5-34) 02/09/20 13:00 ALT 11 U/L (8-55) 02/09/20 13:00 Alkaline Phosphatase 92 U/L (40-110) 02/09/20 13:00 Creatine Kinase 147 U/L (30-200) 02/09/20 13:00 CK-MB (CK-2) 2.0 ng/mL (0-6.6) 02/09/20 13:00 Troponin I 0.031 ng/mL (< 0.028) H 02/09/20 13:00 Serum Total Protein 7.7 g/dL (5.8-8.1) 02/09/20 13:00 Albumin 4.1 g/dL (3.4-4.8) 02/09/20 13:00 ASSESSMENT AND PLAN: Mr. Pauly Hoyos is a 69-year-old male with history significant for hypertension, diabetes, presented with acute onset left-sided weakness and speech deficit. MRI of the brain reviewed and was consistent with acute infarction in the right middle cerebral artery territory. CTA neck showed no significant stenosis. CTA of the head showed significant stenosis along branch vessel along the right MCA. Consider CV Surgery input. Continue aspirin and high-intensity statin for secondary stroke prevention. Awaiting 2D echo. Neuro checks every 4 hours. Monitor blood pressure and blood glucose. Continue home medications, telemetry, PT/OT/speech. Continue medical management per primary team. The patient has a remote history of seizure, so EEG completed and was negative for seizure activity. Observe seizure precautions. Consider starting on Keppra 500 mg b.i.d. since the patient has remote history of seizures and current stroke also places him at increased risk. Continue medical management per primary team. We will continue to follow. Thank you for the consult. Job ID: [id number] MTDD
--- NOTE | 2020-02-10 14:23 | PDOC.HOSPP ---
- Subjective Encounter Date: 02/10/20 Encounter Time: 09:00 Subjective: The patient has no complaints today. He still has weakness, states it is on the right side but it is actually on the left side - Objective Vital Signs & Weight: Vital Signs (12 hours) Temp Pulse Resp BP Pulse Ox 02/10/20 11:42 98.8 F 62 16 188/98 H 94 L 02/10/20 08:15 97 02/10/20 04:56 98.4 F 72 24 H 178/81 H 97 Weight Admit Weight 185 lb 11.2 oz Weight 185 lb 11.2 oz I&O: 02/09/20 02/10/20 02/11/20 06:59 06:59 06:59 Intake Total 100 Output Total 225 200 Balance -125 -200 Result Diagrams: 02/09/20 13:00 02/09/20 13:00 Additional Labs: Accuchecks 02/10/20 02/10/20 02/09/20 10:51 05:47 12:39 POC Glucose 116 H 122 H 155 H Hospitalist ROS - Review of Systems Constitutional: denies: fever, chills - Medication Medications: Active Medications Generic Name Dose Route Start Last Admin Trade Name Freq PRN Reason Stop Dose Admin Atorvastatin Calcium 40 mg 02/09/20 21:00 02/09/20 22:46 Atorvastatin Calcium 40 Mg Tab PO Not Given HS YRIS - Exam General Appearance: NAD, awake alert Eye: PERRL, anicteric sclera ENT: normocephalic atraumatic, no oropharyngeal lesions Neck: no JVD Heart: RRR, no murmur, no gallops, no rubs Respiratory: CTAB, no wheezes, no rales, no ronchi Gastrointestinal: soft, non-tender, non-distended, normal bowel sounds Extremities: no cyanosis, no clubbing, no edema Skin: normal turgor, no lesions, no rashes Neurological: cranial nerve grossly intact, normal sensation to touch, no new deficit, facial droop (left side with facial weakness), speech deficit (diminished speech) Neurological - other findings: 4/5 strength LUE and LLE, 5/5 strength RUE and RLE Psychiatric: flat affect Hosp A/P - Plan ECHO: ECHO 60-65%, diastolic dysfunction, mild MR, mild TR, aortic valve sclerotic MRI brain: acute infarct right MCA. CTA head and neck: stenosis along branch vessel of right MCA This is a 69 year old male with history of hypertension, diabetes who presented with left sided weakness, found to have right MCA stroke Right MCA stroke - noted on CT head. CTA neck showed no significant stenosis. CTA head shows stenosis along second-third degree branch vessel along right MCA. MRI brain showed acute infarct right MCA - neurology has been consulted, recommended starting keppra given history of seizures. EEG was negative - will consult vascular surgery regarding branch stenosis - continue aspirin - BP goal normotensive today Hypertension - resume home meds gradually for BP goal around 160 Type II Diabetes - insulin sliding scale - fingersticks achs Elevated troponin - ECHO showed no ischemia . Troponin downtrended CAD - had stent placement in LAD in 2017 - continue aspirin/plavix Schizophrenia vs Bipolar - not on any psychiatric meds. 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
[2020-02-10] MEDS: Clopidogrel Bisulfate 75 MG TAB PO SCH (14:40)
[2020-02-10] MEDS: NIFEdipine XL 30 MG TAB PO SCH (14:40)
[2020-02-10] MEDS: Aspirin Chewable 81 MG TAB PO SCH (14:40)
[2020-02-10] MEDS ORDERED: levETIRAcetam 500 MG TAB PO SCH ×2 (14:45→21:00)
[2020-02-10] MEDS: Atorvastatin Calcium 40 MG TAB PO SCH (20:22)
--- NOTE | 2020-02-10 20:24 | CON ---
DATE OF CONSULTATION: HISTORY OF PRESENT ILLNESS: I was asked to see this patient, who suffered a right middle cerebral artery vascular accident and has been evaluated. His MRI of the brain confirms the above findings. A CT angiogram of the neck and intracranial vascular system showed no atherosclerotic disease of the cervical and carotid artery. There were minimal vascular calcifications of the internal carotid artery just past the siphon and then no discernible lesions in the right middle cerebral artery distribution, although interpretation by Radiology stated that there was presumed to be a 2nd or 3rd order vascular occlusion, although this could not be visualized. The patient reportedly on dual antiplatelet therapy. His cardiac echo shows no cardioembolic source and he has been in sinus rhythm while here in the hospital except for occasional PVC. ASSESSMENT AND PLAN: At this time, the patient has no vascular disease. It can be noted on CT angiography and as such, no intervention would be contemplated. I agree with continuing his outpatient dual antiplatelet therapy and no further vascular evaluation needed. Job ID: [id number]
[2020-02-10] MEDS: Labetalol HCl 100 MG/20 ML VIAL SLOW IVP PRN (21:57)
[2020-02-11] MEDS: Labetalol HCl 100 MG/20 ML VIAL SLOW IVP PRN (05:13)
[2020-02-11 05:51] LABS: Hemoglobin A1c 6.8 % (4.0-6.0)
[2020-02-11 06:09] LABS: Cardiac Risk 4.5 (Less than 4.5)
[2020-02-11] MEDS: NIFEdipine XL 30 MG TAB PO SCH (10:07)
[2020-02-11] MEDS: Clopidogrel Bisulfate 75 MG TAB PO SCH (10:09)
[2020-02-11] MEDS: Aspirin Chewable 81 MG TAB PO SCH (10:09)
--- NOTE | 2020-02-11 17:17 | PDOC.HOSPP ---
- Subjective Encounter Date: 02/11/20 Encounter Time: 10:30 Subjective: pt up in bed drowsy but arousable. - Objective Vital Signs & Weight: Vital Signs (12 hours) Temp Pulse Resp BP BP BP BP 02/11/20 15:56 98.9 F 105 H 18 168/90 H 02/11/20 11:00 97.5 F L 100 24 H 152/77 H 02/11/20 10:55 134/78 153/79 H 02/11/20 10:07 79 173/100 H 02/11/20 07:54 97.9 F 79 14 173/100 H Pulse Ox 02/11/20 15:56 97 02/11/20 11:00 93 L 02/11/20 10:55 02/11/20 10:07 02/11/20 07:54 97 Weight Admit Weight 185 lb 11.2 oz Weight 185 lb 11.2 oz I&O: 02/10/20 02/11/20 02/12/20 06:59 06:59 06:59 Intake Total 100 Output Total 225 400 Balance -125 -400 Result Diagrams: 02/09/20 13:00 02/09/20 13:00 Additional Labs: Accuchecks 02/11/20 02/11/20 02/11/20 16:52 11:37 06:03 POC Glucose 132 H 164 H 115 H 02/10/20 21:05 POC Glucose 98 Hospitalist ROS - Review of Systems Cardiovascular: denies: chest pain, palpitations, orthopnea, paroxysmal noc. dyspnea, edema, light headedness, other Gastrointestinal: denies: nausea, vomiting, abdominal pain, diarrhea, constipation, melena, hematochezia, other Genitourinary: denies: dysuria, frequency, incontinence, hematuria, retention, other - Medication Medications: Active Medications Generic Name Dose Route Start Last Admin Trade Name Freq PRN Reason Stop Dose Admin Aspirin 81 mg 02/10/20 09:00 02/11/20 10:09 Aspirin Chewable 81 Mg Tab PO 81 mg DAILY YRIS Administration Atorvastatin Calcium 40 mg 02/09/20 21:00 02/10/20 20:22 Atorvastatin Calcium 40 Mg Tab PO Not Given HS YRIS Clopidogrel Bisulfate 75 mg 02/10/20 09:00 02/11/20 10:09 Clopidogrel Bisulfate 75 Mg Tab PO 75 mg DAILY YRIS Administration Levetiracetam 500 mg/ Device 100 mls @ 200 mls/hr 02/11/20 09:00 02/11/20 09:49 IVPB 100 mls BID YRIS Administration Labetalol HCl 10 mg 02/10/20 13:52 02/11/20 05:13 Labetalol Hcl 100 Mg/20 Ml Vial SLOW IVP 10 mg Q4H PRN Administration SBP Greater Than 180 Nifedipine 30 mg 02/10/20 09:00 02/11/20 10:07 Nifedipine Xl 30 Mg Tab PO 30 mg DAILY YRIS Administration - Exam Neck: negative: supple, symmetric, no JVD, no thyromegaly, no lymphadenopathy, no carotid bruit, JVD Heart: negative: RRR, no murmur, no gallops, no rubs, normal peripheral pulses, irregular, diminshed peripheral pulses, murmur present, II/IV, III/IV Respiratory: negative: CTAB, no wheezes, no rales, no ronchi, normal chest expansion, no tachypnea, normal percussion, rales, rhonchi, tachypneic, wheezes Gastrointestinal: soft, normal bowel sounds Extremities: 1+ LE edema Neurological - other findings: pt drowsy but follows command Hosp A/P - Plan This is a 69 year old male with history of hypertension, diabetes who presented with left sided weakness, found to have right MCA stroke Right MCA stroke - noted on CT head. CTA neck showed no significant stenosis. CTA head shows stenosis along second-third degree branch vessel along right MCA. MRI brain showed acute infarct right MCA - neurology has been consulted, recommended starting keppra given history of seizures. EEG was negative - will consult vascular surgery regarding branch stenosis - continue aspirin - BP goal normotensive today will need placement. No intervention. Hypertension - resume home meds gradually for BP goal around 160 Type II Diabetes - insulin sliding scale - fingersticks achs Elevated troponin - ECHO showed no ischemia . Troponin downtrended CAD - had stent placement in LAD in 2017 - continue aspirin/plavix Schizophrenia vs Bipolar - not on any psychiatric meds. 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
[2020-02-11] MEDS: Atorvastatin Calcium 40 MG TAB PO SCH (21:49)
[2020-02-12] MEDS: Aspirin Chewable 81 MG TAB PO SCH (09:02)
[2020-02-12] MEDS: Clopidogrel Bisulfate 75 MG TAB PO SCH (09:03)
[2020-02-12] MEDS: NIFEdipine XL 30 MG TAB PO SCH (09:03)
--- NOTE | 2020-02-12 16:34 | RAD ---
XR Abdomen 1 View/KUB History: NG tube placement Comparison: None. Findings: Weighted feeding tube tip at the gastric fundus. Impression: Weighted feeding tube tip in the gastric fundus. Recommend retraction and re-advancement.
--- NOTE | 2020-02-12 18:18 | RAD ---
XR Abdomen 1 View/KUB History: NG tube placement Comparison: Radiograph same day Findings: Interval coiling of the weighted feeding tube tip in gastric body. Impression: Weighted feeding tube tip at the gastric body with coiling within the fundus.
[2020-02-12] MEDS: Atorvastatin Calcium 40 MG TAB PO SCH (20:49)
--- NOTE | 2020-02-12 20:54 | RAD ---
XR Abdomen 1 View/KUB History: NG tube placement Comparison: Radiograph same day Findings: Similar location of the weighted feeding tube tip with tip in the gastric body. Impression: Similar location weighted feeding tube tip.
--- NOTE | 2020-02-12 23:57 | PDOC.EVN ---
Event Note - Event Note Event Note: 21:54 - Notified by RN, patient with NGT coiled. Apparently they advanced further and repeat XR showed similar appearance. Radiology confirmed it was looped in fundus. Instructed to pull out 8-10 cm and re-advance. 23:48 - Notified by RN Patient has now pulled NGT out due to discomfort. It has not been repositioned yet. Advised to attempt to place NGT as discomfort likely due to malposition. Will need re-imaging to confirm placement. If he refuses then we will keep NPO. Speech therapy eval pending for AM.
[2020-02-13] MEDS: Labetalol HCl 100 MG/20 ML VIAL SLOW IVP PRN ×2 (04:51→11:40)
[2020-02-13] MEDS: Aspirin Chewable 81 MG TAB PO SCH (10:32)
[2020-02-13] MEDS: Clopidogrel Bisulfate 75 MG TAB PO SCH (10:32)
[2020-02-13] MEDS ORDERED: Polyethylene Glycol 3350 17 GM Packet PO SCH (13:15)
[2020-02-13] MEDS ORDERED: NIFEdipine 10 MG CAP PO SCH ×2 (13:30→21:00)
[2020-02-13] MEDS: NIFEdipine XL 30 MG TAB PO SCH (13:39)
--- NOTE | 2020-02-13 15:04 | PDOC.NEUPN ---
- Subjective Encounter Date: 02/13/20 Subjective: Patient continues to have left sided weakness. MRI brain positive for acute infarction. - Objective Vital Signs & Weight: Vital Signs (12 hours) Temp Pulse Resp BP Pulse Ox 02/13/20 12:11 64 185/94 H 02/13/20 11:20 97.1 F L 72 20 197/88 H 99 02/13/20 08:49 96 02/13/20 07:42 98.3 F 69 20 169/93 H 96 02/13/20 04:00 98.7 F 79 13 184/84 H 96 Weight Admit Weight 185 lb 11.2 oz Weight 185 lb 11.2 oz I&O: 02/12/20 02/13/20 02/14/20 06:59 06:59 06:59 Output Total 600 Balance -600 Result Diagrams: 02/09/20 13:00 02/09/20 13:00 Additional Labs: Accuchecks 02/13/20 02/13/20 02/12/20 10:46 04:28 21:07 POC Glucose 114 H 126 H 114 H 02/12/20 02/10/20 17:03 16:47 POC Glucose 107 H 127 H Radiology Reviewed by me: Yes EKG Reviewed by me: Yes ROS - Review of Systems ROS unobtainable: due to mental status (somnolent) - Medication Medications: Active Medications Generic Name Dose Route Start Last Admin Trade Name Freq PRN Reason Stop Dose Admin Aspirin 81 mg 02/10/20 09:00 02/13/20 10:32 Aspirin Chewable 81 Mg Tab PO 81 mg DAILY YRIS Administration Atorvastatin Calcium 40 mg 02/09/20 21:00 02/12/20 20:49 Atorvastatin Calcium 40 Mg Tab PO Not Given HS YRIS Clopidogrel Bisulfate 75 mg 02/10/20 09:00 02/13/20 10:32 Clopidogrel Bisulfate 75 Mg Tab PO 75 mg DAILY YRIS Administration Labetalol HCl 10 mg 02/10/20 13:52 02/13/20 11:40 Labetalol Hcl 100 Mg/20 Ml Vial SLOW IVP 10 mg Q4H PRN Administration SBP Greater Than 180 Nifedipine 30 mg 02/10/20 09:00 02/13/20 13:39 Nifedipine Xl 30 Mg Tab PO Not Given DAILY YRIS Nifedipine 10 mg 02/13/20 13:30 02/13/20 13:40 Nifedipine 10 Mg Cap PO 09/21/20 15:30 10 mg NOW YRIS Administration - Exam Eye: PERRL ENT: normocephalic atraumatic Neck: supple Respiratory: CTAB Cardiovascular: RRR Gastrointestinal: soft Extremities: no cyanosis Skin: normal turgor Neurological: no new deficit Musculoskeletal: no muscle wasting PSYCH: somnolent Results - Labs Result Diagrams: 02/09/20 13:00 02/09/20 13:00 Lab results: WBC 6.9 thou/uL (4.8-10.8) 02/09/20 13:00 Hgb 14.2 g/dL (14.0-18.0) 02/09/20 13:00 Hct 43.9 % (42.0-52.0) 02/09/20 13:00 MCV 85.8 fL (78.0-98.0) 02/09/20 13:00 Plt Count 176 thou/uL (130-400) 02/09/20 13:00 Neutrophils % 73.5 % (42.0-75.0) 02/09/20 13:00 Sodium 137 mmol/L (136-145) 02/09/20 13:00 Potassium 4.3 mmol/L (3.5-5.1) 02/09/20 13:00 Chloride 101 mmol/L (98-107) 02/09/20 13:00 Carbon Dioxide 30 mmol/L (23-31) 02/09/20 13:00 BUN 12 mg/dL (8.4-25.7) 02/09/20 13:00 Creatinine 1.27 mg/dL (0.7-1.3) 02/09/20 13:00 Glucose 145 mg/dL (80-115) H 02/09/20 13:00 Calcium 9.3 mg/dL (7.8-10.44) 02/09/20 13:00 Total Bilirubin 0.5 mg/dL (0.2-1.2) 02/09/20 13:00 AST 16 U/L (5-34) 02/09/20 13:00 ALT 11 U/L (8-55) 02/09/20 13:00 Alkaline Phosphatase 92 U/L (40-110) 02/09/20 13:00 Creatine Kinase 147 U/L (30-200) 02/09/20 13:00 CK-MB (CK-2) 2.0 ng/mL (0-6.6) 02/09/20 13:00 Troponin I 0.018 ng/mL (< 0.028) 02/09/20 19:33 Serum Total Protein 7.7 g/dL (5.8-8.1) 02/09/20 13:00 Albumin 4.1 g/dL (3.4-4.8) 02/09/20 13:00 - Radiology Interpretation MRI - head Additional Comment: Consistent with RMCA infarction PN A/P (1) CVA (cerebral vascular accident) Code(s): I63.9 - CEREBRAL INFARCTION, UNSPECIFIED Status: Acute (2) HTN (hypertension) Code(s): I10 - ESSENTIAL (PRIMARY) HYPERTENSION Status: Acute - Plan Daily Plan: PT/OT, speech therapy, DVT proph w/SCDs 69 year old presented with acute onset left sided weakness. MRI Brain positive for stroke MRI brain reviewed which showed acute infarct right MCA CTA neck showed no significant stenosis. CTA head showed stenosis along second-third degree branch vessel along right MCA. CV surgery consulted. Recommended dual therapy. 2 D Echo showed LVEF 50-55%. No thrombus or PFO. EEG reviewed and was negative for seizure activity. Keppra started because of prior seizure history and new stroke on imaging which places him at high risk for recurrence of seizures. Strict control of BP and BG. Telemetry Continue aspirin and high intensity statin for secondary stroke prevention. Continue home medications PT/OT/Speech. Continue medical management per primary team. Case discussed during MDR rounds.
[2020-02-13 15:20] VITALS: BP 170/89; TEMP 98.3
--- NOTE | 2020-02-13 16:51 | PDOC.HOSPP ---
- Subjective Encounter Date: 02/12/20 Encounter Time: 10:30 Subjective: pt up in bed more awake - Objective Vital Signs & Weight: Vital Signs (12 hours) Temp Pulse Resp BP Pulse Ox 02/13/20 15:05 98.3 F 74 24 H 170/89 H 99 02/13/20 12:11 64 185/94 H 02/13/20 11:20 97.1 F L 72 20 197/88 H 99 02/13/20 08:49 96 02/13/20 07:42 98.3 F 69 20 169/93 H 96 Weight Admit Weight 185 lb 11.2 oz Weight 185 lb 11.2 oz I&O: 02/12/20 02/13/20 02/14/20 06:59 06:59 06:59 Output Total 600 Balance -600 Result Diagrams: 02/09/20 13:00 02/09/20 13:00 Additional Labs: Accuchecks 02/13/20 02/13/20 02/13/20 16:34 10:46 04:28 POC Glucose 152 H 114 H 126 H 02/12/20 02/12/20 02/10/20 21:07 17:03 16:47 POC Glucose 114 H 107 H 127 H Hospitalist ROS - Review of Systems Respiratory: denies: cough, dry, shortness of breath, hemoptysis, SOB with excertion, pleuritic pain, sputum, wheezing, other Cardiovascular: denies: chest pain, palpitations, orthopnea, paroxysmal noc. dyspnea, edema, light headedness, other Gastrointestinal: denies: nausea, vomiting, abdominal pain, diarrhea, constipation, melena, hematochezia, other - Medication Medications: Active Medications Generic Name Dose Route Start Last Admin Trade Name Freq PRN Reason Stop Dose Admin Aspirin 81 mg 02/10/20 09:00 02/13/20 10:32 Aspirin Chewable 81 Mg Tab PO 81 mg DAILY YRIS Administration Atorvastatin Calcium 40 mg 02/09/20 21:00 02/12/20 20:49 Atorvastatin Calcium 40 Mg Tab PO Not Given HS YRIS Clopidogrel Bisulfate 75 mg 02/10/20 09:00 02/13/20 10:32 Clopidogrel Bisulfate 75 Mg Tab PO 75 mg DAILY YRIS Administration Labetalol HCl 10 mg 02/10/20 13:52 02/13/20 11:40 Labetalol Hcl 100 Mg/20 Ml Vial SLOW IVP 10 mg Q4H PRN Administration SBP Greater Than 180 Nifedipine 30 mg 02/10/20 09:00 02/13/20 13:39 Nifedipine Xl 30 Mg Tab PO Not Given DAILY YRIS - Exam Heart: negative: RRR, no murmur, no gallops, no rubs, normal peripheral pulses, irregular, diminshed peripheral pulses, murmur present, II/IV, III/IV Respiratory: negative: CTAB, no wheezes, no rales, no ronchi, normal chest expansion, no tachypnea, normal percussion, rales, rhonchi, tachypneic, wheezes Gastrointestinal: negative: soft, non-tender, non-distended, normal bowel sounds, no palpable masses, no hepatomegaly, no splenomegaly, no bruit, no guarding, no rigidity, tender to palpation, distended, diminished bowl sounds, voluntary guarding Extremities: 1+ LE edema Hosp A/P - Plan This is a 69 year old male with history of hypertension, diabetes who presented with left sided weakness, found to have right MCA stroke Right MCA stroke - noted on CT head. CTA neck showed no significant stenosis. CTA head shows stenosis along second-third degree branch vessel along right MCA. MRI brain show ed acute infarct right MCA - neurology has been consulted, recommended starting keppra given history of seizures. EEG was negative - will consult vascular surgery regarding branch stenosis - continue aspirin - BP goal normotensive today will need placement. No intervention. Hypertension - resume home meds gradually for BP goal around 160 Type II Diabetes - insulin sliding scale - fingersticks achs Elevated troponin - ECHO showed no ischemia . Troponin downtrended CAD - had stent placement in LAD in 2017 - continue aspirin/plavix Schizophrenia vs Bipolar - not on any psychiatric meds. 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 spoke with speech who does not feel comfortable feeing him. will start tube feeds and place ng.
--- NOTE | 2020-02-13 16:53 | PDOC.HOSPP ---
- Subjective Encounter Date: 02/13/20 Encounter Time: 09:00 Subjective: pt up in bed no complains - Objective Vital Signs & Weight: Vital Signs (12 hours) Temp Pulse Resp BP Pulse Ox 02/13/20 15:05 98.3 F 74 24 H 170/89 H 99 02/13/20 12:11 64 185/94 H 02/13/20 11:20 97.1 F L 72 20 197/88 H 99 02/13/20 08:49 96 02/13/20 07:42 98.3 F 69 20 169/93 H 96 Weight Admit Weight 185 lb 11.2 oz Weight 185 lb 11.2 oz I&O: 02/12/20 02/13/20 02/14/20 06:59 06:59 06:59 Output Total 600 Balance -600 Result Diagrams: 02/09/20 13:00 02/09/20 13:00 Additional Labs: Accuchecks 02/13/20 02/13/20 02/13/20 16:34 10:46 04:28 POC Glucose 152 H 114 H 126 H 02/12/20 02/12/20 02/10/20 21:07 17:03 16:47 POC Glucose 114 H 107 H 127 H Hospitalist ROS - Review of Systems Respiratory: denies: cough, dry, shortness of breath, hemoptysis, SOB with excertion, pleuritic pain, sputum, wheezing, other Cardiovascular: denies: chest pain, palpitations, orthopnea, paroxysmal noc. dyspnea, edema, light headedness, other Gastrointestinal: denies: nausea, vomiting, abdominal pain, diarrhea, constipation, melena, hematochezia, other - Medication Medications: Active Medications Generic Name Dose Route Start Last Admin Trade Name Freq PRN Reason Stop Dose Admin Aspirin 81 mg 02/10/20 09:00 02/13/20 10:32 Aspirin Chewable 81 Mg Tab PO 81 mg DAILY YRIS Administration Atorvastatin Calcium 40 mg 02/09/20 21:00 02/12/20 20:49 Atorvastatin Calcium 40 Mg Tab PO Not Given HS [facility] Clopidogrel Bisulfate 75 mg 02/10/20 09:00 02/13/20 10:32 Clopidogrel Bisulfate 75 Mg Tab PO 75 mg DAILY YRIS Administration Labetalol HCl 10 mg 02/10/20 13:52 02/13/20 11:40 Labetalol Hcl 100 Mg/20 Ml Vial SLOW IVP 10 mg Q4H PRN Administration SBP Greater Than 180 Nifedipine 30 mg 02/10/20 09:00 02/13/20 13:39 Nifedipine Xl 30 Mg Tab PO Not Given DAILY YRIS - Exam Heart: negative: RRR, no murmur, no gallops, no rubs, normal peripheral pulses, irregular, diminshed peripheral pulses, murmur present, II/IV, III/IV Respiratory: negative: CTAB, no wheezes, no rales, no ronchi, normal chest expansion, no tachypnea, normal percussion, rales, rhonchi, tachypneic, wheezes Gastrointestinal: negative: soft, non-tender, non-distended, normal bowel sounds, no palpable masses, no hepatomegaly, no splenomegaly, no bruit, no guarding, no rigidity, tender to palpation, distended, diminished bowl sounds, voluntary guarding Hosp A/P - Plan This is a 69 year old male with history of hypertension, diabetes who presented with left sided weakness, found to have right MCA stroke Right MCA stroke - noted on CT head. CTA neck showed no significant stenosis. CTA head shows stenosis along second-third degree branch vessel along right MCA. MRI brain showed acute infarct right MCA - neurology has been consulted, recommended starting keppra given history of seizures. EEG was negative - will consult vascular surgery regarding branch stenosis - continue aspirin - BP goal normotensive today will need placement. No intervention. Hypertension - resume home meds gradually for BP goal around 160 Type II Diabetes - insulin sliding scale - fingersticks achs Elevated troponin - ECHO showed no ischemia . Troponin downtrended CAD - had stent placement in LAD in 2017 - continue aspirin/plavix Schizophrenia vs Bipolar - not on any psychiatric meds. 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 spoke with speech who does not feel comfortable feeing him. will start tube feeds and place ng. 02/12 pt pulled out his ng tube. per speech his diet has been changed. will change iv meds to oral.
[2020-02-13] MEDS ORDERED: Carvedilol 25 MG TAB PO SCH (18:15)
[2020-02-13] MEDS ORDERED: Furosemide 20 MG TAB PO SCH (18:15)
[2020-02-13] MEDS ORDERED: Senokot S 8.6-50 MG TAB PO SCH (21:00)
[2020-02-13] MEDS ORDERED: levETIRAcetam 500 MG TAB PO SCH (21:00)
[2020-02-14] MEDS ORDERED: Carvedilol 25 MG TAB PO SCH (08:00)
[2020-02-14] MEDS ORDERED: Polyethylene Glycol 3350 17 GM Packet PO SCH (09:00)
--- NOTE | 2020-02-15 02:44 | DIS ---
DATE OF ADMISSION: 02/09/2020 DATE OF DISCHARGE: 02/13/2020 DISCHARGE DIAGNOSES: As of the followin. Acute stroke. 2. Right MCA stroke. 3. Hypertension. 4. Diabetes. 5. Coronary artery disease. HOSPITAL COURSE: The patient is a 69-year-old male, who initially presented to the hospital on 02/08 with stroke-like symptoms. At this time, the patient underwent a CTA which did not indicate any significant stenosis of the neck. However, CT head indicated 2nd and 3rd branch vessel along the right MCA, some stenosis. The patient at this time did not appear to be a tPA candidate. He was admitted to the hospital. He did have an MRI of the brain, which indicated an acute infarct involving the right middle cerebral artery, moderate chronic ischemic white matter changes. He had an echocardiogram which indicated an EF of 50% to 55% with some mild mitral and tricuspid regurgitation. He was also seen by CV Surgery for the stenosis. No intervention was recommended. The patient had issues with oral feeding. However, he was able to tolerate nectar thick water and pureed consistency. At this time, he was then discharged to rehabilitation. Family was updated about this. The patient will be discharged home with; 1. Aspirin 81 mg daily. 2. Metformin 1000 b.i.d. 3. Keppra 500 mg b.i.d., the reason for the Keppra was to prevent seizures. This is per Neurology. 4. Clopidogrel 75 mg daily. 5. Coreg 25 b.i.d. 6. Lisinopril 40 mg daily. 7. Lasix 20 mg daily. 8. Atorvastatin 40 mg at bedtime. PHYSICAL EXAMINATION: VITAL SIGNS: On discharge, temperature of 98.3, pulse 74, respirations 20, oxygen saturation 99% on room air, blood pressure 169/93. GENERAL: He is awake, alert, and oriented x3. Does not appear in distress. CV: S1, S2 present. No murmurs, rubs, or gallops. ABDOMEN: Soft, nontender. Bowel sounds are present x2. The patient will be discharged to stroke rehabilitation and follow up with primary Neurology. Job ID: [id number]
== END 2020-02-13 19:46 | DRG 65 ==
LOC: ERS 12:28 → ERHOLD 16:24 → 2SE 22:25
PROVIDERS: ADMIT Internal Medicine; ATTEND Internal Medicine
PROC: 3E0234Z Introduction of Serum, Toxoid and Vaccine into Muscle, Percutaneous Approach (ICD-10-PCS; principal; 2020-02-10)
DX: I63.511 Cerebral infarction due to unspecified occlusion or stenosis of right middle cerebral artery (principal); G81.94 Hemiplegia, unspecified affecting left nondominant side; T85.528A Displacement of other gastrointestinal prosthetic devices, implants and grafts, initial encounter; Z20.828 Contact with and (suspected) exposure to other viral communicable diseases; R47.01 Aphasia; R47.1 Dysarthria and anarthria; F25.0 Schizoaffective disorder, bipolar type; E11.65 Type 2 diabetes mellitus with hyperglycemia; R29.715 NIHSS score 15; R40.2362 Coma scale, best motor response, obeys commands, at arrival to emergency department; R40.2142 Coma scale, eyes open, spontaneous, at arrival to emergency department; R40.2252 Coma scale, best verbal response, oriented, at arrival to emergency department; E78.00 Pure hypercholesterolemia, unspecified; E78.5 Hyperlipidemia, unspecified; I50.9 Heart failure, unspecified; I11.0 Hypertensive heart disease with heart failure; R79.89 Other specified abnormal findings of blood chemistry; Y84.8 Other medical procedures as the cause of abnormal reaction of the patient, or of later complication, without mention of misadventure at the time of the procedure; Z86.73 Personal history of transient ischemic attack (TIA), and cerebral infarction without residual deficits; Z23 Encounter for immunization; Z79.899 Other long term (current) drug therapy; Z79.84 Long term (current) use of oral hypoglycemic drugs; Z79.02 Long term (current) use of antithrombotics/antiplatelets
CPT/HCPCS: 36415; 36416; 70450; 70496; 70498; 70551; 74018; 80053; 80061; 82550; 82553; 83036; 84439; 84443; 84484; 85025; 85610; 85730; 87635; 90471; 90732; 93005; 93306; 95712; 95816; 95819; 95957; 96365; 96366; G0009; J1953; Q9967; U0003

== ENCOUNTER 2020-02-29 18:37 | Emergency (ER) | payer MEDICARE, OTHER, MEDICAID ==
[2020-02-29 19:13] LABS: Bilirubin Negative (Negative); Blood, Urine Negative (Negative); Clarity Clear (Clear); Glucose, Urine (Dipstick) Normal (Negative); Ketone, Urine Negative (Negative); Leukocyte Negative Leu/uL (Negative); Nitrite Negative (Negative); Protein, Urine (Dipstick) Negative (Neg-Trace); Specific Gravity, Urine 1.013 (1.002-1.036); Urobilinogen Normal mg/dL (Less than 2)
[2020-02-29 19:29] LABS: #Basophils 0.1 thou/uL (0.0-0.2); #Eosinphils 0.1 thou/uL (0.0-0.7); #Lymphocytes 2.2 thou/uL (1.20-3.40); #Monocytes 0.9 thou/uL (0.11-0.59); #Neutrophils 5.3 thou/uL (1.40-6.50); %Basophils 0.7 % (0.0-1.0); %Eosinophils 1.7 % (0.0-10.0); %Lymphocytes 25.5 % (21.0-51.0); %Monocytes 10.7 % (0.0-10.0); %Neutrophils 61.4 % (42.0-75.0); Hemoglobin 13.1 g/dL (14.0-18.0); Mean Corpuscular HGB CONC 34.2 g/dL (32.0-36.0); Mean Corpuscular Hemoglobin 28.8 pg (27.0-31.0); Mean Corpuscular Volume 84.3 fL (78.0-98.0); Mean Platelet Volume 8.6 fL (7.4-10.4); Platelet Count 220 thou/uL (130-400); RBC Distribution Width 12.2 % (11.5-14.5); Red Blood Cell (RBC) Count 4.55 mill/uL (4.70-6.10); White Blood Cell (WBC) Count 8.6 thou/uL (4.8-10.8)
[2020-02-29 19:45] LABS: Amphetamine Not Detected (NotDetected); Barbiturates Screen Not Detected (NotDetected); Benzodiazepine Screen Not Detected (NotDetected); Cocaine Metabolite Screen Not Detected (NotDetected); Medtox Control Line Valid? VALID (VALID); Medtox Reader # READER 1; Methadone Not Detected (NotDetected); Methamphetamine Not Detected (NotDetected); Opiate Screen Not Detected (NotDetected); Oxycodone Screen Not Detected (NotDetected); Phencyclidine (PCP) Not Detected (NotDetected); THC/Cannabinoid Screen Not Detected (NotDetected); Tricyclic Screen Not Detected (NotDetected)
[2020-02-29 19:52] LABS: Acetaminophen Less than 6.0 mcg/mL (10.0-30.0); Alcohol Less than 10 mg/dL (Less than 10); Salicylate Less than 8.0 mg/dL (15.0-30.0)
[2020-02-29 19:59] LABS: ALT (SGPT) 24 U/L (8-55); AST (SGOT) 27 U/L (5-34); Albumin 3.8 g/dL (3.4-4.8); Alcohol Less than 10 mg/dL (Less than 10); Alkaline Phosphatase 57 U/L (40-110); Anion Gap 17 mmol/L (10-20); BUN (Urea Nitrogen) 17 mg/dL (8.4-25.7); Bilirubin, Total 0.5 mg/dL (0.2-1.2); Calc. Creatinine Clearance 0 mL/min (70-130); Calcium 9.3 mg/dL (7.8-10.44); Carbon Dioxide 15 mmol/L (23-31); Chloride 104 mmol/L (98-107); Estimated GFR-MDRD 83; Globulin 3.5 g/dL (2.4-3.5); Glucose 147 mg/dL (80-115); Potassium 4.2 mmol/L (3.5-5.1); Protein, Total 7.3 g/dL (5.8-8.1); Sodium 132 mmol/L (136-145)
== END 2020-03-01 18:31 ==
LOC: ERS 18:37
DX: F43.20 Adjustment disorder, unspecified (principal); E11.9 Type 2 diabetes mellitus without complications; I11.0 Hypertensive heart disease with heart failure; I50.9 Heart failure, unspecified; E78.00 Pure hypercholesterolemia, unspecified; E78.5 Hyperlipidemia, unspecified; F20.9 Schizophrenia, unspecified; Z79.899 Other long term (current) drug therapy; Z86.73 Personal history of transient ischemic attack (TIA), and cerebral infarction without residual deficits; Z79.84 Long term (current) use of oral hypoglycemic drugs
CPT/HCPCS: 36415; 80053; 80306; 80307; 81003; 84443; 85025; 99285

== ENCOUNTER 2020-09-28 09:40 | Observation (INO) | payer MEDICARE, MEDICAID ==
[2020-09-28 10:36] LABS: #Eosinphils 0.2 thou/uL (0.0-0.7); #Lymphocytes 1.1 thou/uL (1.20-3.40); #Monocytes 0.7 thou/uL (0.11-0.59); %Basophils 0.6 % (0.0-1.0); %Eosinophils 2.5 % (0.0-10.0); %Lymphocytes 15.2 % (21.0-51.0); %Neutrophils 71.6 % (42.0-75.0); Hemoglobin 14.3 g/dL (14.0-18.0); Mean Corpuscular HGB CONC 33.5 g/dL (32.0-36.0); Mean Corpuscular Hemoglobin 28.1 pg (27.0-31.0); Mean Corpuscular Volume 83.9 fL (78.0-98.0); Mean Platelet Volume 9.2 fL (7.4-10.4); Platelet Count 138 thou/uL (130-400); RBC Distribution Width 13.1 % (11.5-14.5); Red Blood Cell (RBC) Count 5.08 mill/uL (4.70-6.10)
[2020-09-28 11:03] LABS: ALT (SGPT) 12 U/L (8-55); AST (SGOT) 23 U/L (5-34); Alkaline Phosphatase 83 U/L (40-110); Anion Gap 14 mmol/L (10-20); BUN (Urea Nitrogen) 13 mg/dL (8.4-25.7); Bilirubin, Total 0.5 mg/dL (0.2-1.2); Calc. Creatinine Clearance 0 mL/min (70-130); Calcium 10.3 mg/dL (7.8-10.44); Carbon Dioxide 26 mmol/L (23-31); Chloride 99 mmol/L (98-107); Globulin 3.6 g/dL (2.4-3.5); Glucose 100 mg/dL (80-115); Potassium 3.5 mmol/L (3.5-5.1); Protein, Total 7.6 g/dL (5.8-8.1); Sodium 135 mmol/L (136-145)
[2020-09-28] MEDS ORDERED: levETIRAcetam in NS 100 ML ONE (11:21)
[2020-09-28 12:29] LABS: Acetaminophen Less than 6.0 mcg/mL (10.0-30.0); Alcohol Less than 10 mg/dL (Less than 10); Salicylate Less than 8.0 mg/dL (15.0-30.0)
[2020-09-28 13:21] LABS: Amphetamine Not Detected (NotDetected); Barbiturates Screen Not Detected (NotDetected); Benzodiazepine Screen Not Detected (NotDetected); Cocaine Metabolite Screen Not Detected (NotDetected); Medtox Control Line Valid? VALID (VALID); Medtox Reader # READER 1; Methadone Not Detected (NotDetected); Methamphetamine Not Detected (NotDetected); Opiate Screen Not Detected (NotDetected); Oxycodone Screen Not Detected (NotDetected); Phencyclidine (PCP) Not Detected (NotDetected); THC/Cannabinoid Screen Not Detected (NotDetected); Tricyclic Screen Not Detected (NotDetected)
[2020-09-28] MEDS ORDERED: Ondansetron PF 4 MG/2 ML Vial IVP PRN (13:48)
[2020-09-28] MEDS ORDERED: Acetaminophen 325 MG TAB PO PRN (13:48)
[2020-09-28] MEDS ORDERED: Dextrose 5% in Water 1,000 ML IV PRN (13:51)
[2020-09-28] MEDS ORDERED: Dextrose 50% Abboject 50 ML SYRINGE SLOW IVP PRN (13:51)
[2020-09-28] MEDS ORDERED: hydrALAZINE 20 MG/ML VIAL SLOW IVP PRN (13:51)
[2020-09-28 15:05] LABS: Troponin I 0.024 ng/mL (< 0.028)
[2020-09-28 17:08] VITALS: BMI 24.7
[2020-09-28 18:01] LABS: Troponin I 0.027 ng/mL (< 0.028)
[2020-09-28] MEDS: Carvedilol 25 MG TAB PO SCH (19:16)
[2020-09-28] MEDS: Atorvastatin Calcium 40 MG TAB PO SCH (19:55)
[2020-09-28 21:02] LABS: Troponin I 0.032 ng/mL (< 0.028)
[2020-09-28 21:24] LABS: Bacteria/HPF None Seen HPF (None Seen); Bilirubin Negative (Negative); Blood, Urine Negative (Negative); Clarity Clear (Clear); Glucose, Urine (Dipstick) Normal (Negative); Ketone, Urine Negative (Negative); Leukocyte Negative Leu/uL (Negative); Nitrite Negative (Negative); Protein, Urine (Dipstick) 10 mg/dL (Neg-Trace); RBC/HPF None Seen HPF (0-3); Specific Gravity, Urine 1.011 (1.002-1.036); Squamous Epithelial None Seen HPF (0-3); Urobilinogen Normal mg/dL (Less than 2)
[2020-09-28 21:26] LABS: Urine Culture Reflex Yes Yes
[2020-09-29 01:54] LABS: SARS-CoV-2 PCR by NAA Not Detected (NotDetected)
[2020-09-29 04:42] LABS: #Basophils 0.1 thou/uL (0.0-0.2); #Eosinphils 0.2 thou/uL (0.0-0.7); #Lymphocytes 1.3 thou/uL (1.20-3.40); #Monocytes 0.7 thou/uL (0.11-0.59); #Neutrophils 4.1 thou/uL (1.40-6.50); %Eosinophils 3.2 % (0.0-10.0); %Lymphocytes 20.9 % (21.0-51.0); %Monocytes 10.8 % (0.0-10.0); %Neutrophils 64.1 % (42.0-75.0); Hemoglobin 13.1 g/dL (14.0-18.0); Mean Corpuscular HGB CONC 32.3 g/dL (32.0-36.0); Mean Corpuscular Hemoglobin 26.9 pg (27.0-31.0); Mean Corpuscular Volume 83.4 fL (78.0-98.0); Mean Platelet Volume 9.2 fL (7.4-10.4); Platelet Count 139 thou/uL (130-400); RBC Distribution Width 12.9 % (11.5-14.5); Red Blood Cell (RBC) Count 4.86 mill/uL (4.70-6.10); White Blood Cell (WBC) Count 6.4 thou/uL (4.8-10.8)
[2020-09-29 05:06] LABS: Anion Gap 11 mmol/L (10-20); BUN (Urea Nitrogen) 12 mg/dL (8.4-25.7); Calc. Creatinine Clearance 77 mL/min (70-130); Calcium 9.2 mg/dL (7.8-10.44); Carbon Dioxide 29 mmol/L (23-31); Chloride 100 mmol/L (98-107); Glucose 102 mg/dL (80-115); Potassium 3.3 mmol/L (3.5-5.1); Sodium 137 mmol/L (136-145)
[2020-09-29] MEDS: Aspirin 81 mg Enteric Coated Tablet PO SCH (09:03)
[2020-09-29] MEDS: Carvedilol 25 MG TAB PO SCH ×2 (09:03→17:08)
[2020-09-29] MEDS: Lisinopril 20 MG TAB PO SCH (09:03)
[2020-09-29] MEDS: levETIRAcetam 500 MG TAB PO SCH ×2 (09:04→21:14)
[2020-09-29] MEDS: Clopidogrel Bisulfate 75 MG TAB PO SCH (09:04)
[2020-09-29] MEDS: HumaLOG 300 UNITS/3 ML VIAL SC PRN (11:58)
[2020-09-29] MEDS: Atorvastatin Calcium 40 MG TAB PO SCH (21:14)
[2020-09-30 05:07] LABS: #Eosinphils 0.2 thou/uL (0.0-0.7); #Lymphocytes 1.5 thou/uL (1.20-3.40); #Monocytes 0.7 thou/uL (0.11-0.59); #Neutrophils 4.1 thou/uL (1.40-6.50); %Basophils 0.5 % (0.0-1.0); %Eosinophils 3.1 % (0.0-10.0); %Lymphocytes 22.6 % (21.0-51.0); %Monocytes 10.7 % (0.0-10.0); %Neutrophils 63.2 % (42.0-75.0); Hemoglobin 13.1 g/dL (14.0-18.0); Mean Corpuscular HGB CONC 32.2 g/dL (32.0-36.0); Mean Corpuscular Hemoglobin 26.8 pg (27.0-31.0); Mean Corpuscular Volume 83.3 fL (78.0-98.0); Mean Platelet Volume 8.7 fL (7.4-10.4); Platelet Count 139 thou/uL (130-400); RBC Distribution Width 12.9 % (11.5-14.5); Red Blood Cell (RBC) Count 4.89 mill/uL (4.70-6.10); White Blood Cell (WBC) Count 6.5 thou/uL (4.8-10.8)
[2020-09-30 05:22] LABS: Anion Gap 12 mmol/L (10-20); BUN (Urea Nitrogen) 20 mg/dL (8.4-25.7); Calc. Creatinine Clearance 70 mL/min (70-130); Calcium 9.1 mg/dL (7.8-10.44); Carbon Dioxide 26 mmol/L (23-31); Chloride 103 mmol/L (98-107); Glucose 125 mg/dL (80-115); Potassium 3.5 mmol/L (3.5-5.1); Sodium 137 mmol/L (136-145)
[2020-09-30] MEDS: Clopidogrel Bisulfate 75 MG TAB PO SCH (08:28)
[2020-09-30] MEDS: Lisinopril 20 MG TAB PO SCH (08:28)
[2020-09-30] MEDS: Aspirin 81 mg Enteric Coated Tablet PO SCH (08:28)
[2020-09-30] MEDS: Carvedilol 25 MG TAB PO SCH (08:28)
[2020-09-30] MEDS: levETIRAcetam 500 MG TAB PO SCH (08:28)
[2020-09-30] MEDS: HumaLOG 300 UNITS/3 ML VIAL SC PRN (12:32)
[2020-09-30 13:31] VITALS: BP 167/83; TEMP 98.8
== END 2020-09-30 14:25 | disposition home health service (06) ==
LOC: ERS 09:40 → 2SW 13:28
PROVIDERS: ADMIT Internal Medicine; ATTEND Hospitalist
DX: G40.901 Epilepsy, unspecified, not intractable, with status epilepticus (principal); G93.41 Metabolic encephalopathy; R07.9 Chest pain, unspecified; E11.9 Type 2 diabetes mellitus without complications; E78.5 Hyperlipidemia, unspecified; I11.0 Hypertensive heart disease with heart failure; I50.32 Chronic diastolic (congestive) heart failure; I25.10 Atherosclerotic heart disease of native coronary artery without angina pectoris; I69.398 Other sequelae of cerebral infarction; G93.89 Other specified disorders of brain; Z79.84 Long term (current) use of oral hypoglycemic drugs; Z79.899 Other long term (current) drug therapy; Z95.5 Presence of coronary angioplasty implant and graft; Z20.822 Contact with and (suspected) exposure to COVID-19
CPT/HCPCS: 51701; 70450; 71045; 80048 ×2; 80053; 80177; 80306; 80307; 81001; 82962 ×3; 84484 ×2; 85025 ×3; 87086; 93005; 95712; 95819; 95957; 96374; 97139; 99285; U0003; U0005; 36415; 36416; 87635; 96375; G0378; J0360; J1815; J1953

== ENCOUNTER 2021-03-24 21:17 | Inpatient (IN) | payer MEDICARE, MEDICAID ==
[2021-03-24 23:05] LABS: #Eosinphils 0.1 thou/uL (0.0-0.7); #Monocytes 0.7 thou/uL (0.11-0.59); #Neutrophils 5.2 thou/uL (1.40-6.50); %Basophils 0.6 % (0.0-1.0); %Eosinophils 0.9 % (0.0-10.0); %Lymphocytes 14.7 % (21.0-51.0); %Monocytes 9.7 % (0.0-10.0); %Neutrophils 74.1 % (42.0-75.0); Hemoglobin 13.2 g/dL (14.0-18.0); Mean Corpuscular HGB CONC 34.8 g/dL (32.0-36.0); Mean Corpuscular Hemoglobin 29.9 pg (27.0-31.0); Mean Corpuscular Volume 85.9 fL (78.0-98.0); Mean Platelet Volume 8.9 fL (7.4-10.4); Platelet Count 115 thou/uL (130-400); RBC Distribution Width 12.1 % (11.5-14.5); Red Blood Cell (RBC) Count 4.43 mill/uL (4.70-6.10)
[2021-03-24 23:06] LABS: ALT (SGPT) 10 U/L (8-55); AST (SGOT) 22 U/L (5-34); Albumin 3.9 g/dL (3.4-4.8); Alkaline Phosphatase 69 U/L (40-110); Anion Gap 15 mmol/L (10-20); BUN (Urea Nitrogen) 13 mg/dL (8.4-25.7); Calc. Creatinine Clearance 0 mL/min (70-130); Calcium 9.4 mg/dL (7.8-10.44); Carbon Dioxide 26 mmol/L (23-31); Chloride 100 mmol/L (98-107); Glucose 125 mg/dL (80-115); Potassium 3.6 mmol/L (3.5-5.1); Protein, Total 6.9 g/dL (5.8-8.1); Sodium 137 mmol/L (136-145)
[2021-03-24 23:35] LABS: Platelet Morphology Comment Appears Decreased; RBC Morphology Normal
[2021-03-25] MEDS ORDERED: Ondansetron PF 4 MG/2 ML Vial IVP PRN (01:41)
[2021-03-25] MEDS ORDERED: Acetaminophen 325 MG TAB PO PRN (01:41)
[2021-03-25] MEDS ORDERED: Labetalol HCl 100 MG/20 ML VIAL SLOW IVP PRN (01:41)
[2021-03-25] MEDS ORDERED: hydrALAZINE 20 MG/ML VIAL SLOW IVP PRN ×2 (01:41→16:19)
[2021-03-25] MEDS ORDERED: Lorazepam 2 MG/ML VIAL SLOW IVP PRN (01:45)
[2021-03-25] MEDS ORDERED: HumaLOG 300 UNITS/3 ML VIAL SC PRN (01:46)
[2021-03-25] MEDS ORDERED: Dextrose 5% in Water 1,000 ML IV PRN (01:46)
[2021-03-25] MEDS ORDERED: Dextrose 50% Abboject 50 ML SYRINGE SLOW IVP PRN (01:46)
[2021-03-25] MEDS ORDERED: levETIRAcetam in NS 1,000 MG in Premix Bag 1 BAG IVPB SCH (02:00)
[2021-03-25] MEDS ORDERED: Aspirin 81 mg Enteric Coated Tablet PO SCH (02:15)
[2021-03-25 02:27] LABS: #Eosinphils 0.1 thou/uL (0.0-0.7); #Lymphocytes 1.2 thou/uL (1.20-3.40); #Monocytes 0.9 thou/uL (0.11-0.59); #Neutrophils 5.7 thou/uL (1.40-6.50); %Basophils 0.5 % (0.0-1.0); %Eosinophils 0.8 % (0.0-10.0); %Lymphocytes 15.3 % (21.0-51.0); %Monocytes 11.1 % (0.0-10.0); %Neutrophils 72.3 % (42.0-75.0); Hemoglobin 13.3 g/dL (14.0-18.0); Mean Corpuscular HGB CONC 35.1 g/dL (32.0-36.0); Mean Corpuscular Hemoglobin 30.2 pg (27.0-31.0); Mean Corpuscular Volume 86.1 fL (78.0-98.0); Platelet Count 117 thou/uL (130-400); RBC Distribution Width 12.2 % (11.5-14.5); White Blood Cell (WBC) Count 7.9 thou/uL (4.8-10.8)
[2021-03-25 02:47] LABS: Hemoglobin A1c 6.3 % (4.0-6.0)
[2021-03-25 02:50] LABS: Anion Gap 15 mmol/L (10-20); BUN (Urea Nitrogen) 11 mg/dL (8.4-25.7); Calc. Creatinine Clearance 0 mL/min (70-130); Calcium 9.4 mg/dL (7.8-10.44); Carbon Dioxide 23 mmol/L (23-31); Cardiac Risk 4.1 (Less than 4.5); Chloride 101 mmol/L (98-107); Cholesterol 182 mg/dl (< 200 Desired); Glucose 113 mg/dL (80-115); HDL Cholesterol 44 mg/dL (>60 Neg Risk); LDL Cholesterol, Calculated 123 mg/dL; Potassium 3.5 mmol/L (3.5-5.1); Sodium 135 mmol/L (136-145); Triglycerides 73 mg/dL (Less than 150)
[2021-03-25 03:29] VITALS: BMI 22.7
[2021-03-25] MEDS: levETIRAcetam in NS 1,000 MG in Premix Bag 1 BAG IVPB SCH ×2 (10:07→21:00)
[2021-03-25] MEDS: Aspirin 81 mg Enteric Coated Tablet PO SCH (10:07)
[2021-03-25 11:10] LABS: Bacteria/HPF None Seen HPF (None Seen); Bilirubin Negative (Negative); Blood, Urine Negative (Negative); Clarity Clear (Clear); Glucose, Urine (Dipstick) Normal (Negative); Ketone, Urine Negative (Negative); Leukocyte Negative Leu/uL (Negative); Nitrite Negative (Negative); Protein, Urine (Dipstick) 10 mg/dL (Neg-Trace); RBC/HPF 0-3 HPF (0-3); Squamous Epithelial 0-3 HPF (0-3); Urobilinogen Normal mg/dL (Less than 2); WBC/HPF 0-3 HPF (0-3)
[2021-03-25 11:12] LABS: Urine Culture Reflex No No
[2021-03-25 11:51] LABS: SARS-CoV-2 PCR by NAA Not Detected (NotDetected)
[2021-03-25] MEDS: Carvedilol 25 MG TAB PO SCH (18:08)
[2021-03-25] MEDS ORDERED: Atorvastatin Calcium 40 MG TAB PO SCH (21:00)
[2021-03-25] MEDS: Atorvastatin Calcium 40 MG TAB PO SCH (21:01)
[2021-03-26 06:19] LABS: #Basophils 0.1 thou/uL (0.0-0.2); #Eosinphils 0.2 thou/uL (0.0-0.7); #Lymphocytes 1.4 thou/uL (1.20-3.40); #Monocytes 0.8 thou/uL (0.11-0.59); #Neutrophils 3.7 thou/uL (1.40-6.50); %Basophils 1.3 % (0.0-1.0); %Eosinophils 2.9 % (0.0-10.0); %Lymphocytes 22.4 % (21.0-51.0); %Monocytes 12.3 % (0.0-10.0); %Neutrophils 61.1 % (42.0-75.0); Mean Corpuscular HGB CONC 33.1 g/dL (32.0-36.0); Mean Corpuscular Hemoglobin 28.6 pg (27.0-31.0); Mean Corpuscular Volume 86.5 fL (78.0-98.0); Mean Platelet Volume 8.9 fL (7.4-10.4); Platelet Count 104 thou/uL (130-400); RBC Distribution Width 12.4 % (11.5-14.5); Red Blood Cell (RBC) Count 4.55 mill/uL (4.70-6.10); White Blood Cell (WBC) Count 6.1 thou/uL (4.8-10.8)
[2021-03-26 06:40] LABS: Anion Gap 11 mmol/L (10-20); BUN (Urea Nitrogen) 11 mg/dL (8.4-25.7); Calc. Creatinine Clearance 73 mL/min (70-130); Calcium 8.9 mg/dL (7.8-10.44); Carbon Dioxide 26 mmol/L (23-31); Chloride 106 mmol/L (98-107); Glucose 117 mg/dL (80-115); Potassium 3.3 mmol/L (3.5-5.1); Sodium 140 mmol/L (136-145)
[2021-03-26] MEDS ORDERED: Potassium Chloride 20 MEQ TAB PO SCH (07:45)
[2021-03-26] MEDS: Lisinopril 20 MG TAB PO SCH (08:19)
[2021-03-26] MEDS: Aspirin 81 mg Enteric Coated Tablet PO SCH (08:20)
[2021-03-26] MEDS: Carvedilol 25 MG TAB PO SCH ×2 (08:20→17:06)
[2021-03-26] MEDS: NIFEdipine XL 90 MG TAB PO SCH (08:20)
[2021-03-26] MEDS: levETIRAcetam in NS 1,000 MG in Premix Bag 1 BAG IVPB SCH ×2 (09:52→20:33)
[2021-03-26] MEDS: HumaLOG 300 UNITS/3 ML VIAL SC PRN (12:03)
[2021-03-26] MEDS ORDERED: Lorazepam 2 MG/ML VIAL SLOW IVP SCH (20:00)
[2021-03-26] MEDS: Atorvastatin Calcium 40 MG TAB PO SCH (20:03)
[2021-03-27] MEDS ORDERED: Sterile Water 10 ML VIAL FS PRN (00:30)
[2021-03-27] MEDS ORDERED: OLANZapine 10 MG VIAL IM SCH (00:45)
[2021-03-27] MEDS ORDERED: Lorazepam 2 MG/ML VIAL ONE (03:43)
[2021-03-27] MEDS ORDERED: Lorazepam 2 MG/ML VIAL SLOW IVP SCH (03:45)
[2021-03-27 05:47] LABS: #Basophils 0.1 thou/uL (0.0-0.2); #Eosinphils 0.1 thou/uL (0.0-0.7); #Lymphocytes 1.4 thou/uL (1.20-3.40); #Monocytes 0.7 thou/uL (0.11-0.59); %Basophils 0.8 % (0.0-1.0); %Eosinophils 2.2 % (0.0-10.0); %Lymphocytes 21.7 % (21.0-51.0); %Monocytes 11.6 % (0.0-10.0); %Neutrophils 63.7 % (42.0-75.0); Hemoglobin 13.7 g/dL (14.0-18.0); Mean Corpuscular HGB CONC 34.6 g/dL (32.0-36.0); Mean Corpuscular Hemoglobin 29.7 pg (27.0-31.0); Mean Corpuscular Volume 85.8 fL (78.0-98.0); Mean Platelet Volume 9.1 fL (7.4-10.4); Platelet Count 133 thou/uL (130-400); RBC Distribution Width 12.4 % (11.5-14.5); Red Blood Cell (RBC) Count 4.63 mill/uL (4.70-6.10); White Blood Cell (WBC) Count 6.3 thou/uL (4.8-10.8)
[2021-03-27 06:17] LABS: Anion Gap 10 mmol/L (10-20); BUN (Urea Nitrogen) 10 mg/dL (8.4-25.7); Calc. Creatinine Clearance 81 mL/min (70-130); Carbon Dioxide 26 mmol/L (23-31); Chloride 107 mmol/L (98-107); Glucose 147 mg/dL (80-115); Sodium 140 mmol/L (136-145)
[2021-03-27] MEDS ORDERED: Potassium Chloride 20 MEQ TAB PO SCH (08:00)
[2021-03-27] MEDS: NIFEdipine XL 90 MG TAB PO SCH (08:53)
[2021-03-27] MEDS: Lisinopril 20 MG TAB PO SCH (08:53)
[2021-03-27] MEDS: levETIRAcetam in NS 1,000 MG in Premix Bag 1 BAG IVPB SCH ×2 (08:53→21:13)
[2021-03-27] MEDS: Carvedilol 25 MG TAB PO SCH ×2 (08:53→17:33)
[2021-03-27] MEDS: Aspirin 81 mg Enteric Coated Tablet PO SCH (08:53)
[2021-03-27] MEDS ORDERED: OXcarbazepine 150 MG TAB PO SCH ×2 (21:00)
[2021-03-27] MEDS: Atorvastatin Calcium 40 MG TAB PO SCH (21:14)
[2021-03-28] MEDS: Aspirin 81 mg Enteric Coated Tablet PO SCH (08:58)
[2021-03-28] MEDS: NIFEdipine XL 90 MG TAB PO SCH (08:58)
[2021-03-28] MEDS: Lisinopril 20 MG TAB PO SCH (08:59)
[2021-03-28] MEDS: Carvedilol 25 MG TAB PO SCH ×2 (08:59→17:01)
[2021-03-28] MEDS: Folic Acid 1 MG TAB PO SCH (08:59)
[2021-03-28] MEDS ORDERED: FLU VACC QS2021-22(65YR UP)/PF 240 MCG/0.7 ML SYRINGE IM ONE (09:00)
[2021-03-28] MEDS: levETIRAcetam in NS 1,000 MG in Premix Bag 1 BAG IVPB SCH ×2 (09:53→22:23)
[2021-03-28] MEDS ORDERED: Citalopram 20 MG TAB PO SCH (17:00)
[2021-03-28] MEDS: Atorvastatin Calcium 40 MG TAB PO SCH (22:21)
[2021-03-29] MEDS: Lisinopril 20 MG TAB PO SCH (08:30)
[2021-03-29] MEDS: Aspirin 81 mg Enteric Coated Tablet PO SCH (08:30)
[2021-03-29] MEDS: Carvedilol 25 MG TAB PO SCH ×2 (08:30→17:29)
[2021-03-29] MEDS: NIFEdipine XL 90 MG TAB PO SCH (08:30)
[2021-03-29] MEDS: Folic Acid 1 MG TAB PO SCH (08:30)
[2021-03-29] MEDS: Citalopram 20 MG TAB PO SCH (08:31)
[2021-03-29] MEDS: levETIRAcetam in NS 1,000 MG in Premix Bag 1 BAG IVPB SCH ×2 (09:51→10:06)
[2021-03-29] MEDS ORDERED: levETIRAcetam 500 MG TAB PO SCH (10:15)
[2021-03-29] MEDS: Lorazepam 1 MG TAB PO PRN ×2 (15:16→22:47)
[2021-03-29] MEDS: Atorvastatin Calcium 40 MG TAB PO SCH (21:05)
[2021-03-29] MEDS: levETIRAcetam 500 MG TAB PO SCH (21:06)
[2021-03-30 06:57] LABS: #Basophils 0.1 thou/uL (0.0-0.2); #Eosinphils 0.1 thou/uL (0.0-0.7); #Lymphocytes 1.3 thou/uL (1.20-3.40); #Monocytes 0.9 thou/uL (0.11-0.59); #Neutrophils 4.3 thou/uL (1.40-6.50); %Basophils 0.8 % (0.0-1.0); %Eosinophils 2.2 % (0.0-10.0); %Lymphocytes 20.2 % (21.0-51.0); %Monocytes 12.8 % (0.0-10.0); Hemoglobin 14.5 g/dL (14.0-18.0); Mean Corpuscular HGB CONC 33.7 g/dL (32.0-36.0); Mean Corpuscular Volume 86.2 fL (78.0-98.0); Mean Platelet Volume 8.5 fL (7.4-10.4); Platelet Count 157 thou/uL (130-400); RBC Distribution Width 12.4 % (11.5-14.5); Red Blood Cell (RBC) Count 4.98 mill/uL (4.70-6.10); White Blood Cell (WBC) Count 6.6 thou/uL (4.8-10.8)
[2021-03-30 07:00] LABS: Anion Gap 12 mmol/L (10-20); BUN (Urea Nitrogen) 20 mg/dL (8.4-25.7); Calc. Creatinine Clearance 79 mL/min (70-130); Calcium 9.6 mg/dL (7.8-10.44); Carbon Dioxide 24 mmol/L (23-31); Chloride 110 mmol/L (98-107); Glucose 81 mg/dL (80-115); Sodium 142 mmol/L (136-145)
[2021-03-30] MEDS: levETIRAcetam 500 MG TAB PO SCH ×2 (09:00→20:57)
[2021-03-30] MEDS: Aspirin 81 mg Enteric Coated Tablet PO SCH (09:00)
[2021-03-30] MEDS: Folic Acid 1 MG TAB PO SCH (09:00)
[2021-03-30] MEDS: Carvedilol 25 MG TAB PO SCH ×2 (09:00→16:07)
[2021-03-30] MEDS: Citalopram 20 MG TAB PO SCH (09:01)
[2021-03-30] MEDS: Lisinopril 20 MG TAB PO SCH (09:01)
[2021-03-30] MEDS: NIFEdipine XL 90 MG TAB PO SCH (09:50)
[2021-03-30] MEDS: Atorvastatin Calcium 40 MG TAB PO SCH (20:57)
[2021-03-31] MEDS: Aspirin 81 mg Enteric Coated Tablet PO SCH (08:55)
[2021-03-31] MEDS: levETIRAcetam 500 MG TAB PO SCH ×2 (08:55→20:30)
[2021-03-31] MEDS: Citalopram 20 MG TAB PO SCH (08:55)
[2021-03-31] MEDS: Lisinopril 20 MG TAB PO SCH (08:56)
[2021-03-31] MEDS: Folic Acid 1 MG TAB PO SCH (08:56)
[2021-03-31] MEDS: NIFEdipine XL 90 MG TAB PO SCH (08:57)
[2021-03-31] MEDS: Carvedilol 25 MG TAB PO SCH ×2 (08:57→16:52)
[2021-03-31] MEDS: HumaLOG 300 UNITS/3 ML VIAL SC PRN (17:16)
[2021-03-31] MEDS: Atorvastatin Calcium 40 MG TAB PO SCH (20:30)
[2021-03-31] MEDS ORDERED: cloNIDine 0.1 MG TAB PO SCH (23:15)
[2021-04-01] MEDS: Carvedilol 25 MG TAB PO SCH ×2 (09:13→16:42)
[2021-04-01] MEDS: levETIRAcetam 500 MG TAB PO SCH ×2 (09:16→20:43)
[2021-04-01] MEDS: Folic Acid 1 MG TAB PO SCH (09:16)
[2021-04-01] MEDS: Aspirin 81 mg Enteric Coated Tablet PO SCH (09:16)
[2021-04-01] MEDS: Citalopram 20 MG TAB PO SCH (09:16)
[2021-04-01] MEDS: Lisinopril 20 MG TAB PO SCH (09:18)
[2021-04-01] MEDS: NIFEdipine XL 90 MG TAB PO SCH (10:32)
[2021-04-01] MEDS: Atorvastatin Calcium 40 MG TAB PO SCH (20:43)
[2021-04-02] MEDS: Carvedilol 25 MG TAB PO SCH ×2 (09:11→17:13)
[2021-04-02] MEDS: Lisinopril 20 MG TAB PO SCH (10:15)
[2021-04-02] MEDS: levETIRAcetam 500 MG TAB PO SCH ×2 (10:15→20:33)
[2021-04-02] MEDS: Aspirin 81 mg Enteric Coated Tablet PO SCH (10:15)
[2021-04-02] MEDS: NIFEdipine XL 90 MG TAB PO SCH (10:16)
[2021-04-02] MEDS: Folic Acid 1 MG TAB PO SCH (10:16)
[2021-04-02] MEDS: Citalopram 20 MG TAB PO SCH (10:16)
[2021-04-02] MEDS: Atorvastatin Calcium 40 MG TAB PO SCH (20:33)
[2021-04-02] MEDS: hydrALAZINE 25 MG TAB PO SCH (20:33)
[2021-04-03] MEDS: levETIRAcetam 500 MG TAB PO SCH ×2 (08:36→20:27)
[2021-04-03] MEDS: hydrALAZINE 25 MG TAB PO SCH ×3 (08:36→20:22)
[2021-04-03] MEDS: Aspirin 81 mg Enteric Coated Tablet PO SCH (08:36)
[2021-04-03] MEDS: Citalopram 20 MG TAB PO SCH (08:37)
[2021-04-03] MEDS: Folic Acid 1 MG TAB PO SCH (08:37)
[2021-04-03] MEDS: Lisinopril 20 MG TAB PO SCH (08:37)
[2021-04-03] MEDS: Carvedilol 25 MG TAB PO SCH ×2 (08:37→16:42)
[2021-04-03] MEDS: NIFEdipine XL 90 MG TAB PO SCH (08:37)
[2021-04-03 11:47] LABS: SARS-CoV-2 PCR by NAA Not Detected (NotDetected)
[2021-04-03] MEDS: HumaLOG 300 UNITS/3 ML VIAL SC PRN (16:42)
[2021-04-03] MEDS: Atorvastatin Calcium 40 MG TAB PO SCH (20:22)
[2021-04-04] MEDS: Aspirin 81 mg Enteric Coated Tablet PO SCH (08:33)
[2021-04-04] MEDS: Lisinopril 20 MG TAB PO SCH (08:33)
[2021-04-04] MEDS: levETIRAcetam 500 MG TAB PO SCH ×2 (08:33→20:29)
[2021-04-04] MEDS: Citalopram 20 MG TAB PO SCH (08:33)
[2021-04-04] MEDS: Carvedilol 25 MG TAB PO SCH ×2 (08:33→16:45)
[2021-04-04] MEDS: Folic Acid 1 MG TAB PO SCH (08:33)
[2021-04-04] MEDS: NIFEdipine XL 90 MG TAB PO SCH (08:34)
[2021-04-04] MEDS: hydrALAZINE 25 MG TAB PO SCH ×3 (08:34→20:29)
[2021-04-04] MEDS: Atorvastatin Calcium 40 MG TAB PO SCH (20:29)
[2021-04-05] MEDS: NIFEdipine XL 90 MG TAB PO SCH (08:44)
[2021-04-05] MEDS: Lisinopril 20 MG TAB PO SCH (08:44)
[2021-04-05] MEDS: Aspirin 81 mg Enteric Coated Tablet PO SCH (08:45)
[2021-04-05] MEDS: Carvedilol 25 MG TAB PO SCH ×2 (08:45→16:23)
[2021-04-05] MEDS: levETIRAcetam 500 MG TAB PO SCH ×2 (08:45→20:32)
[2021-04-05] MEDS: hydrALAZINE 25 MG TAB PO SCH ×3 (08:45→20:32)
[2021-04-05] MEDS: Citalopram 20 MG TAB PO SCH (08:45)
[2021-04-05] MEDS: Folic Acid 1 MG TAB PO SCH (08:45)
[2021-04-05] MEDS: Atorvastatin Calcium 40 MG TAB PO SCH (20:32)
[2021-04-06] MEDS: Carvedilol 25 MG TAB PO SCH ×2 (09:45→17:07)
[2021-04-06] MEDS: Aspirin 81 mg Enteric Coated Tablet PO SCH (09:45)
[2021-04-06] MEDS: levETIRAcetam 500 MG TAB PO SCH ×2 (09:46→21:45)
[2021-04-06] MEDS: Folic Acid 1 MG TAB PO SCH (09:46)
[2021-04-06] MEDS: Citalopram 20 MG TAB PO SCH (09:46)
[2021-04-06] MEDS: Lisinopril 20 MG TAB PO SCH (09:46)
[2021-04-06] MEDS: hydrALAZINE 25 MG TAB PO SCH ×3 (09:47→21:45)
[2021-04-06] MEDS: NIFEdipine XL 90 MG TAB PO SCH (09:47)
[2021-04-06] MEDS: Atorvastatin Calcium 40 MG TAB PO SCH (21:45)
[2021-04-06 23:33] VITALS: TEMP 98
[2021-04-07] MEDS ORDERED: Carvedilol 6.25 MG TAB PO SCH (08:00)
[2021-04-07] MEDS: Lisinopril 20 MG TAB PO SCH (08:10)
[2021-04-07] MEDS: Aspirin 81 mg Enteric Coated Tablet PO SCH (08:10)
[2021-04-07] MEDS: hydrALAZINE 25 MG TAB PO SCH ×2 (08:10→14:54)
[2021-04-07] MEDS: levETIRAcetam 500 MG TAB PO SCH (08:10)
[2021-04-07] MEDS: NIFEdipine XL 90 MG TAB PO SCH (08:10)
[2021-04-07] MEDS: Folic Acid 1 MG TAB PO SCH (08:11)
[2021-04-07] MEDS: Citalopram 20 MG TAB PO SCH (08:11)
[2021-04-07 14:54] VITALS: BP 115/72
== END 2021-04-07 16:32 | DRG 884 ==
LOC: ERS 21:17 → 3SE 03-25 00:57 → NEURO 03-25 10:52 → T4-B 03-29 13:40
PROVIDERS: ADMIT Internal Medicine; ATTEND Internal Medicine
DX: F03.91 Unspecified dementia, unspecified severity, with behavioral disturbance (principal); I50.32 Chronic diastolic (congestive) heart failure; G93.49 Other encephalopathy; Z20.822 Contact with and (suspected) exposure to COVID-19; I11.0 Hypertensive heart disease with heart failure; E78.5 Hyperlipidemia, unspecified; G40.909 Epilepsy, unspecified, not intractable, without status epilepticus; E11.649 Type 2 diabetes mellitus with hypoglycemia without coma; E78.00 Pure hypercholesterolemia, unspecified; F25.0 Schizoaffective disorder, bipolar type; D69.6 Thrombocytopenia, unspecified; I25.10 Atherosclerotic heart disease of native coronary artery without angina pectoris; R26.81 Unsteadiness on feet; Z86.73 Personal history of transient ischemic attack (TIA), and cerebral infarction without residual deficits; Z95.5 Presence of coronary angioplasty implant and graft; Z79.84 Long term (current) use of oral hypoglycemic drugs; Z79.899 Other long term (current) drug therapy; Z82.49 Family history of ischemic heart disease and other diseases of the circulatory system; Z87.891 Personal history of nicotine dependence
CPT/HCPCS: 36415; 36416; 70450; 70551; 80048; 80053; 80061; 80177; 81001; 82607; 82746; 83036; 84425; 84443; 84484; 85025; 93005; 95712; 95819; 95957; J0360; J1815; J1953; J2060; J2358; U0003; U0005